=== PATIENT | male | born 1960 | race Caucasian/White ===

== ENCOUNTER → 2019-12-12 15:36 | Outpatient (CLI) | payer BC, SELFPAY ==
--- NOTE | ~2019-12-12 | XR_ITS ---
EXAMINATION: XR knee RT 3V DATE: 12/12/2019 17:06 INDICATION: Right knee sprain. TECHNIQUE: 4 views of right knee were obtained. COMPARISON: None. FINDINGS: Bone alignment is normal. No fracture. There is an osteochondroma at medial aspect of proxi mal tibial metaphysis. There is mild tricompartmental osteoarthritis. There is a small knee joint eff usion. IMPRESSION: 1. Mild right knee osteoarthritis. 2. Small right knee joint effusion. Reviewed, dictated and finalized at location A.
== END ==
PROVIDERS: PCP Family Medicine; Visit Provider Family Medicine
DX: S83.91XA Sprain of unspecified site of right knee, initial encounter (principal); X58.XXXA Exposure to other specified factors, initial encounter; M17.11 Unilateral primary osteoarthritis, right knee; M25.461 Effusion, right knee
CPT/HCPCS: 73562

== ENCOUNTER 2019-12-20 13:37 | Outpatient (CLI) | payer BC, SELFPAY ==
--- NOTE | ~2019-12-20 | MR_ITS ---
EXAMINATION: MR knee RT wo con DATE: 12/20/2019 14:45 INDICATION: Right knee pain TECHNIQUE: Magnetic resonance imaging (MRI) of the right knee was performed without intravenous contr ast. Sequences included coronal PD-weighted FSE, coronal PD-weighted FS FSE, sagittal T2-weighted FS E, sagittal PD-weighted FS FSE and axial PD weighted fat saturated FSE. COMPARISON: Right knee radiographs dated 12/12/2019 FINDINGS: Medial compartment: Complex tear which extends from the free edge to the periphery of the lateral aspect of the posterior horn of the medial meniscus and with additional longitudinal horizontal tear plane which extends acr oss the more medial posterior horn and posterior meniscal body, contacting the superior articular evans face near the free edge. Articular cartilage is normal. Lateral compartment: Lateral meniscus is normal. Articular cartilage is normal. Patellofemoral compartment: Chondral ulceration and fissuring with underlying subcutaneous articular edema at the cephalad aspect of the lateral patellar facet. Deep chondral ulceration and fissuring with minimal underlying cortic al irregularity at the caudal aspect of the medial trochlea. Ligaments and tendons: Anterior and posterior cruciate ligaments are normal. Fibular collateral ligament is normal. There is mild thickening and increased signal of the proximal medial collateral ligament without surrounding edema consistent with mild scarring related to chronic sprain. Mild distal quadriceps tendinopathy wi thout discrete tear. The patellar tendon is normal. The visualized medial and lateral hamstring tendo ns as well as the iliotibial band are normal. Fluid: Small knee joint effusion at the suprapatellar pouch. No loose osteochondral bodies identified. Osseous/other: Normal marrow signal aside from the degenerative subarticular edema at the patella. No fracture or pa thologic marrow replacing process. Again seen is an exostosis with cortical and medullary continuity extending distally from the medial metaphyseal region of the proximal tibia consistent with benign os teochondroma. IMPRESSION: 1. Complex medial meniscal tear. 2. Mild patellofemoral osteoarthritis with regions of high-grade chondromalacia at the lateral patell ar facet and medial trochlea. Reviewed, dictated and finalized at location A. IMPRESSION: 1. Complex medial meniscal tear. 2. Mild patellofemoral osteoarthritis with regions of high-grade chondromalacia at the lateral patellar facet and medial trochlea.
== END 2019-12-20 13:38 | disposition home or self-care (01) ==
PROVIDERS: PCP Family Medicine; Visit Provider Family Medicine
DX: S83.231A Complex tear of medial meniscus, current injury, right knee, initial encounter (principal); X58.XXXA Exposure to other specified factors, initial encounter; M17.11 Unilateral primary osteoarthritis, right knee
CPT/HCPCS: 73721

== ENCOUNTER → 2021-02-01 10:30 | Outpatient (CLI) | payer OTHER, BC, SELFPAY ==
--- NOTE | ~2021-02-01 | US_ITS ---
EXAMINATION: US renal BI EXAM DATE: 02/01/2021 10:45 INDICATION: Chronic kidney disease, stage 3a, Other proteinuria . TECHNIQUE: Multiple grayscale and Doppler images of the kidneys were obtained (by a technologist who performed the scan) and subsequently reviewed. There is no prior study for comparison. FINDINGS: Right kidney: There is normal contour and echogenicity. It measures 10.8 x 6.3 x 6.1 centimeters. T here are no focal renal lesions identified. There is no hydronephrosis. Left kidney: There is normal contour and echogenicity. It measures 9.9 x 6.5 x 5.8 centimeters. The re are no focal renal lesions identified. There is no hydronephrosis. Bladder unremarkable. IMPRESSION: 1. Sonographically unremarkable kidneys. Reviewed, dictated and finalized at location B. S CONTRACTOR
== END ==
PROVIDERS: Visit Provider Internal Medicine Nephrology
DX: N18.31 Chronic kidney disease, stage 3a (principal); R80.8 Other proteinuria
CPT/HCPCS: 76775

== ENCOUNTER 2022-01-10 01:51 | Day surgery (SDC) | payer OTHER, BC, SELFPAY ==
[2022-01-10 11:53] VITALS: BP 149/82; PULSE 70; RESP 18; TEMP 36.1; O2SAT 99; BMI 41.8
[2022-01-10] MEDS: LACTATED RINGERS 1,000 ML 150 ML IV CONT (12:05)
[2022-01-10 12:09] LABS: Glucose Point of Care 118 mg/dl (65-105)
--- NOTE | 2022-01-10 12:32 | PM.HPGS ---
History of Present Illness History of Present Illness Consent: Risks, benefits, and alternatives have been discussed and questions answered. Patient agrees to proceed with procedure. Chief complaint: neoplasm screening Narrative: Shane Cohen is a 61 year old male Presents for screening colonoscopy. Patient's current weight appetite bowel movements are unchanged. He denies abdominal pain. He has had no bleeding. Previous colonoscopy 10 years ago was unremarkable. Patient presents today for screening colonoscopy. Review of Systems Review of Systems: Review of systems noncontributory. [facility] Past Medical History Medical History COPD (chronic obstructive pulmonary disease) Diabetes Hx of Guillain-[place] syndrome Hypertension Sleep apnea Stroke Surgical History Surgical History H/O knee surgery left Family History Family History Mother Heart valve replaced COPD (chronic obstructive pulmonary disease) Father Diabetes mellitus Heart disease Obesity Grandparent Diabetes mellitus Cancer Obesity Sibling Diabetes mellitus Social History Social History Social History: Caffeine-tea occasionally Smoking status: Never smoker Alcohol intake: current Alcohol use details: Rarely Substance use type: does not use Living arrangements: with family Spiritual care concerns: No Meds Home Medications and Allergies Home Medications Medication Instructions Recorded Confirmed Type ascorbic acid (vitamin C) 500 mg 1 g PO DAILY 05/28/20 12/20/21 History tablet aspirin 81 mg tablet,delayed 81 mg PO DAILY 05/28/20 12/20/21 History release (Adult Low Dose Aspirin) cholecalciferol (vitamin D3) 125 mcg PO DAILY 05/28/20 12/20/21 History blood sugar diagnostic (Tech CocktailTouch #100 ea 04/04/21 12/06/21 Rx Verio test strips) lancets 33 gauge (Tech CocktailTouch [place]ie #100 ea 04/04/21 12/06/21 Rx Plus Lancet) amlodipine 10 mg tablet 10 mg PO DAILY #90 tabs 09/12/21 12/20/21 Rx losartan 100 mg tablet 100 mg PO DAILY #90 tabs 09/12/21 12/20/21 Rx tamsulosin 0.4 mg capsule (Flomax) 0.4 mg PO QHS #90 caps 12/06/21 12/20/21 Rx empagliflozin 25 mg tablet 25 mg PO DAILY 12/20/21 12/20/21 History (Jardiance) glipizide 10 mg tablet 10 mg PO BID 12/20/21 12/20/21 History metformin 500 mg tablet 1,000 mg PO BID 12/20/21 12/20/21 History metoprolol tartrate 25 mg tablet 25 mg PO BID 12/20/21 12/20/21 History rosuvastatin 40 mg tablet 40 mg PO 2XW 12/20/21 12/20/21 History sodium,potassium,mag sulfates 17.5 See Rx Instructions PO .COMPLEX 12/20/21 01/10/22 Rx gram-3.13 gram-1.6 gram oral soln #354 mL (Suprep Bowel Prep Kit) Allergies Allergy/AdvReac Type Severity Reaction Status Date / Time Influenza Virus Vaccines Allergy 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 Vital signs stable. HEENT exam is unremarkable. Patient is anicteric. Lungs are clear to auscultation and percussion. Heart is without murmur or extra sounds. Abdomen is obese. Bowel sounds present soft nontender with no organomegaly. Digital external rectal exam is normal. Assessment and Plan Assessment and plan (1) Screening for colon cancer: Code(s): Z12.11 - Encounter for screening for malignant neoplasm of colon Status: Acute Assessment and Plan:
--- NOTE | 2022-01-10 12:52 | WPDANESEPPF ---
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 Tetanus Vaccines and Toxoid Allergy Unknown Muscle Verified 01/10/22 11:52 Spasms Shingles vaccine AdvReac 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 Home Medications Medication Instructions Recorded Confirmed Type ascorbic acid (vitamin C) 500 mg 1 g PO DAILY 05/28/20 12/20/21 History tablet aspirin 81 mg tablet,delayed 81 mg PO DAILY 05/28/20 12/20/21 History release (Adult Low Dose Aspirin) cholecalciferol (vitamin D3) 125 mcg PO DAILY 05/28/20 12/20/21 History blood sugar diagnostic (OneTouch #100 ea 04/04/21 12/06/21 Rx Verio test strips) lancets 33 gauge (OneTouch Delica #100 ea 04/04/21 12/06/21 Rx Plus Lancet) amlodipine 10 mg tablet 10 mg PO DAILY #90 tabs 09/12/21 12/20/21 Rx losartan 100 mg tablet 100 mg PO DAILY #90 tabs 09/12/21 12/20/21 Rx tamsulosin 0.4 mg capsule (Flomax) 0.4 mg PO QHS #90 caps 12/06/21 12/20/21 Rx empagliflozin 25 mg tablet 25 mg PO DAILY 12/20/21 12/20/21 History (Jardiance) glipizide 10 mg tablet 10 mg PO BID 12/20/21 12/20/21 History metformin 500 mg tablet 1,000 mg PO BID 12/20/21 12/20/21 History metoprolol tartrate 25 mg tablet 25 mg PO BID 12/20/21 12/20/21 History rosuvastatin 40 mg tablet 40 mg PO 2XW 12/20/21 12/20/21 History sodium,potassium,mag sulfates 17.5 See Rx Instructions PO .COMPLEX 12/20/21 01/10/22 Rx gram-3.13 gram-1.6 gram oral soln #354 mL (Suprep Bowel Prep Kit) Laboratory Tests 01/10/22 12:04 POC Capillary Glucose 118 mg/dl H mg/dl (65-105) Patient hx anesthesia problems: none Family hx anesthesia problems: none Results Review: All pre-operative results and documents have been reviewed as part of the pre-operative evaluation. [facility] Past Medical History Medical History COPD (chronic obstructive pulmonary disease) Diabetes Hx of Guillain-[place] syndrome Hypertension Sleep apnea Stroke Surgical History Surgical History H/O knee surgery left Family History Family History Mother Heart valve replaced COPD (chronic obstructive pulmonary disease) Father Diabetes mellitus Heart disease Obesity Grandparent Diabetes mellitus Cancer Obesity Sibling Diabetes mellitus Social History Social History Social History: Caffeine-tea occasionally Smoking status: Never smoker Alcohol intake: current Alcohol use details: Rarely Substance use type: does not use Living arrangements: with family Spiritual care concerns: No Anes - Eval Final PreProcedure Day of Procedure 01/10/22 12:52 Patient weight: morbidly obese Heart: regular rate and rhythm Lungs: clear to auscultation Airway: Mallampati scale class II Neurological: alert and oriented Last oral intake: >/= 8 hours ASA classification: III Emergent: no Anesthetic plan: proceed Anesthesia type and monitoring: general GIVS and standard monitoring Results Review: All pre-operative results and documents have been reviewed as part of the pre-operative evaluation. Informed Consent: The patient's anesthetic plan and its
[2022-01-10 13:03] VITALS: BP 141/78; PULSE 62; RESP 20; O2SAT 98
[2022-01-10 13:13] VITALS: BP 149/82; PULSE 59; RESP 14; O2SAT 99
[2022-01-10 13:23] VITALS: BP 150/85; PULSE 60; RESP 18; O2SAT 99
== END 2022-01-10 13:36 | disposition home or self-care (01) ==
PROVIDERS: PCP Nurse Practitioner; Visit Provider Internal Medicine Gastroenterology
PROC: 0DJD8ZZ Inspection of Lower Intestinal Tract, Via Natural or Artificial Opening Endoscopic (ICD-10-PCS; CPT 45378; principal; 2022-01-10 13:00)
DX: Z12.11 Encounter for screening for malignant neoplasm of colon (principal); K64.8 Other hemorrhoids; J44.9 Chronic obstructive pulmonary disease, unspecified; E11.9 Type 2 diabetes mellitus without complications; I10 Essential (primary) hypertension; G47.30 Sleep apnea, unspecified; Z86.73 Personal history of transient ischemic attack (TIA), and cerebral infarction without residual deficits; E66.01 Morbid (severe) obesity due to excess calories; Z68.41 Body mass index [BMI] 40.0-44.9, adult; Z79.82 Long term (current) use of aspirin; Z79.84 Long term (current) use of oral hypoglycemic drugs
CPT/HCPCS: 45378; 82948; J2704; J7120

== ENCOUNTER 2023-03-19 10:13 | Emergency (ER) | payer OTHER, SELFPAY ==
[2023-03-19 10:24] VITALS: BP 176/88; PULSE 78; RESP 16; TEMP 36.6; O2SAT 99
--- NOTE | 2023-03-19 10:37 | ED.URI ---
HPI - URI/Sore Throat General Chief Complaint: Upper Respiratory Infection Stated Complaint: COUGH/CONGESTION Time Seen by Provider: 03/19/23 10:35 Source: patient Mode of arrival: ambulatory Limitations: no limitations History of Present Illness HPI Narrative: Shane is a 62-year-old male patient presenting to the clinic today with complaints of cough, nasal congestion, and congestion x3 days. He denies any fever chills. Cough is nonproductive. Is somewhat short of breath when he lays flat. Denies any extremity swelling. No history congestive heart failure. History of COPD/bronchitis MD elicited complaint: nasal congestion Related Data Home Medications Medication Instructions Recorded Confirmed ascorbic acid (vitamin C) 500 mg 1 g PO DAILY 05/28/20 03/19/23 tablet aspirin 81 mg tablet,delayed 81 mg PO DAILY 05/28/20 03/19/23 release (Adult Low Dose Aspirin) cholecalciferol (vitamin D3) 125 mcg PO DAILY 05/28/20 03/19/23 gabapentin 300 mg capsule 900 mg PO DAILY 04/11/22 03/19/23 mecobalamin (vitamin B12) 5,000 5,000 mcg PO DAILY 03/04/23 03/19/23 mcg chewable tablet omeprazole 20 mg tablet,delayed 20 mg PO DAILY 03/04/23 03/19/23 release Allergies Allergy/AdvReac Type Severity Reaction Status Date / Time Influenza Virus Vaccines Allergy Severe GUILLIAN Verified 03/19/23 10:21 BARRE SYNDROME Tetanus Vaccines and Toxoid Allergy Unknown Muscle Verified 03/19/23 10:21 Spasms Shingles vaccine AdvReac 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 Patient denies any fever, chills, rash, headache, visual changes, dizziness, chest pain, palpitations, nausea, vomiting, diarrhea, constipation, abdominal pain, or any urinary issues. [facility] Past Medical History Medical History (Updated 03/19/23 @ 10:39 by Loc Mohan APRN) COPD (chronic obstructive pulmonary disease) COVID-19 Diabetes Hx of Guillain-[place] syndrome Hypertension Influenza A Screening for colon cancer Screening for metabolic disorder Screening for prostate cancer Sleep apnea Stroke Urinary hesitancy Surgical History Surgical History H/O knee surgery left Family History Family History Mother Heart valve replaced COPD (chronic obstructive pulmonary disease) Father Diabetes mellitus Heart disease Obesity Grandparent Diabetes mellitus Cancer Obesity Sibling Diabetes mellitus Social History Social History Social History: Caffeine-tea occasionally Smoking status: Never smoker Alcohol intake: current Alcohol use details: Rarely Substance use type: does not use Do You Feel Safe in your Home?: Yes Lack of Transportation: No Lack of Food: Never True Current Housing: I Have Housing Concerned About Future Housing: No Difficulty Paying Gas/Electric Bills: No Difficulty Paying for Meds: No Currently Unemployed: No Education: Trade/Vocational Certificate Difficulty w/ Childcare or Family Care: No Living arrangements: with family Gender identity (if verbalized by the patient): Male Spiritual care concerns: No Comments At the time of my signature, I reviewed and agree with the nursing past medical, surgical, social, and family history. There is no relevant family history pertinent to the patient complaint. Exam Narrative: General: Well-developed, well nourished, in no apparent distress Head: Normocephalic, atraumatic Eyes: Pupils equally round and reactive to light bilaterally, EOM intact, sclera and conjunctive clear, no discharge, lids normal Ears: TMs intact and clear, ear canals clear, no drainage, grossly hearing normal. Nose: Nares patent, no discharge, no inflammation, no sinus tenderness. [place]
== END 2023-03-19 10:48 | disposition home or self-care (01) ==
PROVIDERS: Emergency Provider Nurse Practitioner Family; PCP Nurse Practitioner
DX: J40 Bronchitis, not specified as acute or chronic (principal); Z20.822 Contact with and (suspected) exposure to COVID-19; J44.9 Chronic obstructive pulmonary disease, unspecified; E11.9 Type 2 diabetes mellitus without complications; I10 Essential (primary) hypertension; G61.0 Guillain-Barre syndrome; Z86.73 Personal history of transient ischemic attack (TIA), and cerebral infarction without residual deficits
CPT/HCPCS: 87426; 87804; 99213; C9803; G0463

== ENCOUNTER → 2023-04-08 14:10 | Outpatient (CLI) | payer OTHER, SELFPAY ==
--- NOTE | ~2023-04-08 | XR_ITS ---
EXAMINATION: XR chest 2V 04/08/2023 14:19 INDICATION: Acute bronchitis PROCEDURE: 2 view chest COMPARISON: Comparison to multiple prior studies sequentially, with oldest reviewed study dated 11/05. FINDINGS: The lungs are clear. The cardiomediastinal silhouette is within normal limits. There are no pleural effusions. There is no pneumothorax suspected. IMPRESSION: 1: NO ACUTE CARDIOPULMONARY DISEASE. Reviewed, dictated and finalized at location B. A INSTRUCTOR
== END ==
PROVIDERS: PCP Nurse Practitioner; Visit Provider Clinical Nurse Specialist
DX: J20.9 Acute bronchitis, unspecified (principal)
CPT/HCPCS: 71046

== ENCOUNTER 2023-08-06 13:00 | Outpatient (RCR) | payer OTHER, SELFPAY ==
[2023-06-23 08:05] VITALS: BMI 44.6
== END 2023-09-16 23:59 | disposition home or self-care (01) ==
LOC: ANHDMC 13:00
PROVIDERS: PCP Family Medicine; Visit Provider Nurse Practitioner
DX: E11.22 Type 2 diabetes mellitus with diabetic chronic kidney disease (principal); E11.65 Type 2 diabetes mellitus with hyperglycemia; E66.01 Morbid (severe) obesity due to excess calories; Z71.89 Other specified counseling; Z71.3 Dietary counseling and surveillance
CPT/HCPCS: 95250; 97802; G0108

== ENCOUNTER 2023-12-02 09:15 | Outpatient (RCR) | payer OTHER, SELFPAY | END 2023-12-14 10:29 | disposition home or self-care (01) | LOC: ANHDMC 09:15 | PROVIDERS: PCP Internal Medicine; Visit Provider Nurse Practitioner | DX: E11.22 Type 2 diabetes mellitus with diabetic chronic kidney disease (principal); N18.9 Chronic kidney disease, unspecified; E11.65 Type 2 diabetes mellitus with hyperglycemia; E66.01 Morbid (severe) obesity due to excess calories; Z71.89 Other specified counseling | CPT/HCPCS: G0108 ==

== ENCOUNTER 2024-01-20 08:34 | Outpatient (CLI) | payer OTHER, SELFPAY ==
[2024-01-20 09:17] LABS: Alanine Aminotransferase 22 U/L (6-50); Aspartate Amino Transferase 40 U/L (17-59)
== END 2024-01-20 08:35 | disposition home or self-care (01) ==
LOC: ANHLAB 08:35
PROVIDERS: PCP Nurse Practitioner Family; Visit Provider Podiatrist Foot & Ankle Surgery
DX: B35.1 Tinea unguium (principal)
CPT/HCPCS: 36415; 84450; 84460

== ENCOUNTER 2024-03-31 09:15 | Outpatient (RCR) | payer OTHER, SELFPAY | END 2024-04-11 09:34 | disposition home or self-care (01) | LOC: ANHDMC 09:15 | PROVIDERS: PCP Nurse Practitioner Family; Visit Provider Nurse Practitioner | DX: E11.65 Type 2 diabetes mellitus with hyperglycemia (principal); E11.22 Type 2 diabetes mellitus with diabetic chronic kidney disease; N18.9 Chronic kidney disease, unspecified; E66.01 Morbid (severe) obesity due to excess calories; R80.9 Proteinuria, unspecified; Z71.89 Other specified counseling | CPT/HCPCS: G0108 ==

== ENCOUNTER 2024-05-18 10:10 | Outpatient (RCR) | payer OTHER, SELFPAY | END 2024-05-20 10:41 | disposition home or self-care (01) | LOC: ANHDMC 10:10 | PROVIDERS: PCP Nurse Practitioner Family; Visit Provider Nurse Practitioner | DX: E11.65 Type 2 diabetes mellitus with hyperglycemia (principal); E11.29 Type 2 diabetes mellitus with other diabetic kidney complication; R80.9 Proteinuria, unspecified; Z71.89 Other specified counseling | CPT/HCPCS: G0108 ==

== ENCOUNTER 2024-08-30 09:15 | Outpatient (RCR) | payer OTHER, SELFPAY | END 2024-10-03 11:05 | disposition home or self-care (01) | LOC: ANHDMC 09:15 | PROVIDERS: PCP Nurse Practitioner Family; Visit Provider Nurse Practitioner | DX: E11.65 Type 2 diabetes mellitus with hyperglycemia (principal); E11.22 Type 2 diabetes mellitus with diabetic chronic kidney disease; E11.29 Type 2 diabetes mellitus with other diabetic kidney complication; R80.9 Proteinuria, unspecified; Z71.89 Other specified counseling | CPT/HCPCS: G0108 ==

== ENCOUNTER 2024-09-15 08:51 | Outpatient (CLI) | payer OTHER, SELFPAY ==
--- NOTE | ~2024-09-15 | XR_ITS ---
XR ankle LT min 3V Ordering provider: Gary Byrne Jr., DPM History: . OA lt ankle; LT ANKLE PAIN x2 MONTHS . Comparison: None. FINDINGS: BONES: No acute fracture or dislocation. Highly suggestive nonhealed fracture at the base of the fift h metatarsal bone. JOINT SPACES: The ankle mortise is normal. SOFT TISSUES: Soft tissue swelling over the medial and lateral malleoli. Calcaneal spur. Ossification of the insertion of the tendo Achilles. IMPRESSION: No acute osseous abnormality left ankle. Highly suggestive of old nonhealed fracture at the base of the fifth metatarsal bone. Proper imaging advised. Calcaneus spur. Reviewed, dictated and finalized at location A.
--- OUTSIDE RECORDS SUMMARY | 2024-09-15 08:58 | XMS_ITS | Encounter Summary ---
Author Organization [facility] Healthcare Address [address] [place] [address] Care Team Providers Care Terrazzo Grinder Name Role Phone Lily Wolf NP Primary Care Provider [phone] Sudarshan Funez MD Unavailable William Delarosa MD Unavailable [phone] Hebert Daily MD Unavailable Donavan Knott MD Unavailable [phone] Mikhail Caceres MD Unavailable [phone] Anita Covarrubias OD Unavailable Cyril Gallardo MD Unavailable [phone] Lily Wolf NP Primary Care Provider [phone] Encounter Details Date Type Department Care Team (Late st Contact Info) Description 07/26/2024 Results Follow-Up [facility] Medical [facility] Primary Care at [address] [id number] Lily Wolf NP [address] [place] [address] [address] [place] [address] Hepatitis B surface antibody (immune status) Blood, Hepatitis B core antibody, total Blood, Hepatitis B Surface Antigen Blood, Additional followed-up results: 9 Social History Tobacco Use Types Packs/Day Years Used Date Smoking Tobacco: Never Smokeless Tobacco: Never PHQ-2 Answer Date Recorded PHQ-2 Total Score (If total score is 3 or more points, staff should administer the PHQ-9) 0 07/25/2024 Sex and Gender Information Value Date Recorded Sex Assigned at Not on file Legal 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 Patient sees Dr. Gallardo documented in this encounter Plan of Treatment Not on file documented as of this encounter Visit Diagnoses Not on filedocumented in this encounter Care Teams Terrazzo Grinder Relationship Specialty Start Date End Date Lily Wolf NP PCP - General Family Medicine 08/25/23 08/24/24 Lily Wolf NP [address] [place] [address] PCP - General Family Medicine 08/25/24 Sudarshan Funez MD [address] [place] [address] Consulting Physician Cardiovascular Disease 08/25/23 [place] [address] [place] [address] Surgeon Orthopedic Surgery 08/25/23 Hebert Daily MD [address] [place] [address] Consulting Physician Urology 08/25/23 Donavan Knott MD [address] [facility] [address] [place] [address] Consulting Physician Internal Medicine 01/26/24 Mikhail Caceres MD [address] [facility] [address] [place] [address] Referring Physician Gastroenterology 01/26/24 Anita Covarrubias OD [address] [facility] [place] [address] Optometry 01/26/24 Cyril Gallardo MD [address] [facility] [address] [place] [address] Referring Physician Nephrology 07/27/24 documented as of this encounter
--- OUTSIDE RECORDS SUMMARY | 2024-09-15 08:58 | XMS_ITS | Referral Summary ---
Author Organization [facility] [address] Address [address] [place] [address] Care Team Providers Care Lobby Attendant Name Role Phone Sudarshan Funez MD Unavailable [phone] William Delarosa MD Unavailable [phone] Hebert Daily MD Unavailable [phone] Donavan Knott MD Unavailable [phone] Mikhail Caceres MD Unavailable [phone] Anita Covarrubias OD Unavailable [phone] Cyril Gallardo MD Unavailable [phone] Lily Wolf NP Primary Care Provider [phone] Encounters Date Type Department Care Team Description 07/27/2024 Telephone [facility] Primary Care at [address] [address] Lily Wolf NP PA for Betamethasone Dipropionate 0.05% ointment 07/26/2024 Results Follow-Up [facility] Medical [facility] Primary Care at [address] [address] Lily Wolf NP Hepatitis B surface antibody (immune status) Blood, Hepatitis B core antibody, total Blood, Hepatitis B Surface Antigen Blood, Additional followed-up results: 9 07/26/2024 Orders Only [facility] Primary Care at [address] [address] Lily Wolf NP 07/25/2024 8:38 AM CDT - 07/25/2024 11:59 PM CDT Hospital Encounter [address] [address] Need for hepatitis B screening test; Controlled type 2 diabetes mellitus with stage 3 chronic kidney disease, unspecified whether mcc insulin use (HCC); Screening PSA (prostate specific antigen); Thyroid disorder screen; Hyperlipidemia associated with type 2 diabetes mellitus (HCC); Hypertension associated with diabetes (HCC); Need for hepatitis C screening test; Encounter for hepatitis C screening test for low risk patient Discharge Disposition: Discharge to home or self care 07/25/2024 8:45 AM CDT Lab [facility] Outpatient Lab at [address] [address] Hyperlipidemia associated with type 2 diabetes mellitus (HCC) (Primary Dx); Hypertension associated with diabetes (HCC) 07/25/2024 8:00 AM CDT Office Visit [facility] Primary Care at [address] [address] Lily Wolf NP Hypertension associated with diabetes (HCC) (Primary Dx); Hyperlipidemia associated with type 2 diabetes mellitus (HCC); Stage 3b chronic kidney disease (HCC); Controlled type 2 diabetes mellitus with stage 3 chronic kidney disease, unspecified whether mcc insulin use (HCC); Insect bite of right lower leg, initial encounter; Thyroid disorder screen; Screening PSA (prostate specific antigen); Need for hepatitis B screening test; Need for hepatitis C screening test; Encounter for hepatitis C screening test for low risk patient; Class 3 severe obesity due to excess calories with serious comorbidity and body mass index (BMI) of 45.0 to 49.9 in adult; Neuropathy; Benign prostatic hyperplasia with urinary frequency from Last 3 Months Allergies Active Allergy Reactions Criticality Noted Date Comments Influenza Virus Vaccines Unknown 02/15/2019 Pneumococcal Vaccine Unknown 02/15/2019 Tetanus Vaccines And Toxoid Unknown 02/16/20 19 Medications blood-glucose meter (OneTouch Verio Meter) [facility] OneTouch Verio Meter Active blood glucose diagnostic (OneTouch Verio test strips) strip OneTouch Verio test strips Active aspirin 81 mg enteric coated tablet Take 1 tablet (81 mg total) by mouth daily Active ascorbic acid (VITAMIN C) 500 mg tablet,chewable Take 1 tablet/chew tab (500 mg total) by mouth cloud automation tester before breakfast Active cholecalciferol , vitamin D3, 5,000 unit/mL drops Take 1 tablet/capsule by mouth cloud automation tester before breakfast Active albuterol HFA (PROVENTIL HFA,VENTOLIN HFA,PROAIR HFA) 90 mcg/actuation inhaler INHALE 2 PUFFS BY MOUTH EVERY 4 TO 6 HOURS NEEDED FOR SHORTNESS OF BREATH FOR WHEEZING 03/19/19 24 Active gabapentin (NEURONTIN) 300 mg capsule Take 1 capsule (300 mg total) by mouth 4 (four) times a day 11/10/19 24 Active omeprazole (PriLOSEC) 20 mg capsule Take 1 capsule (20 mg total) by mouth daily Active ketoconazole (NIZORAL) 2 % cream Apply topically 2 (two) times a day 60 g 01/26/20 24 Active lifitegrast (Xiidra) 5 % dropperette Administer into affected eye(s) 2 (two) times a day Active Mounjaro 10 mg/0.5 mL pen injector injectionIndica tions:type 2 diabetes mellitus Inject 0.5 mL (10 mg total) under the skin every 7 days 6 mL 1 05/20/19 25 025 Active NovoLOG 100 unit/mL (3 mL) pen for injectionIndica tions:Type 2 diabetes mellitus with stage 4 chronic kidney disease, with long-term current use of insulin (HCC) Inject 10-30 Units under the skin daily with dinner 27 mL 1 05/20/19 25 025 Active TRESIBA 100 unit/mL (3 mL) pen for injectionIndica tions:Type 2 diabetes mellitus with stage 4 chronic kidney disease, with long-term current use of insulin (HCC) Inject 0.78 mL (78 Units total) under the skin daily 70.2 mL 3 05/20/19 25 026 Active Additional Information Patient taking differently: 80 Unitssubcutaneous Daily, Reported on 07/25/2024 Farxiga 5 mg tabletIndicatio ns:Chronic Kidney Disease,type 2 diabetes mellitus Take 1 tablet (5 mg total) by mouth daily 90 tablet 3 05/20/19 25 026 Active tamsulosin (FLOMAX) 0.4 mg extended release capsule Take 1 capsule (0.4 mg total) by mouth nightly 100 capsule 3 07/26/19 25 Active amLODIPine (NORVASC) 10 mg tablet Take 1 tablet (10 mg total) by mouth daily 100 tablet 3 07/26/19 25 Active metoprolol tartrate (LOPRESSOR) 25 mg immediate release tablet Take 1 tablet (25 mg total) by mouth 2 (two) times a day 180 tablet 1 07/26/19 25 Active rosuvastatin (CRESTOR) 40 mg tabletIndicatio ns:Hyperlipidem ia associated with type 2 diabetes mellitus (HCC) Take twice weekly 90 tablet 1 07/26/19 25 Active terbinafine (LamiSIL) 250 mg tabletIndicatio ns:Onychomycosi s Take 1 tablet (250 mg total) by mouth daily 90 tablet 07/26/19 25 Active betamethasone dipropionate (DIPROSONE) 0.05 % ointment Apply topically 2 (two) times a day Until healed 30 g 07/26/19 25 Active desoximetasone (TOPICORT) 0.25 % ointment Apply topically 2 (two) times a day Formulary alternative to betamethasone 30 g 07/27/19 25 026 Active Active Problems Problem Noted Date Diagnosed Date Annual physical exam 07/27/2024 Assessment & Plan (07/27/2024 1:40 PM CDT): -Recommended: Healthy diet. Avoiding junk food/fast food. -30 minutes of exercise most days of the week. Increase to 45 minutes for weight loss. Health Maintenance reviewed - Labs ordered. -Influenza vaccine every year Recommend: - Topic Date Due Pneumococcal vaccine <65 (2 of 2 - PCV) 11/24/2009 -F/u in 1 year for Annual PE or sooner if needed Benign prostatic hyperplasia with urinary freque ncy 07/27/2024 Assessment & Plan (07/27/2024 1:42 PM CDT): On tamsulosin .4mg nightly. Having intermittent increased symptoms. Doesn't want to increase dose at this time. Neuropathy 07/25/2024 Assessment & Plan (07/25/2024 8:37 AM CDT): Of bilateral feet. He does see Podiatry. Continue gabapentin Insect bite of right lower leg 07/25/2024 Assessment & Plan (07/25/2024 8:41 AM CDT): Appears to be healing. No signs of infection at this time. Betamethasone ointment to area overnight for itching. Call if any changes Slow transit constipation 01/26/2024 Assessment & Plan (01/26/2024 9:59 AM AQUA AMMONIA OPERATOR): -constipation guidelines -add spencer montelongo Hyperlipidemia associated with type 2 diabetes himanshu dukes 01/26/2024 Assessment & Plan (07/25/2024 8:36 AM CDT): Lipid abnormalities are stable, reviewed previous lipid levels in [facility]. Continue statin therapy. Crestor (rosuvastatin) Order for lipid panel was given today to be obtained. Pt voiced understanding of lab drawn and continuation of current medication regimen. Assessment & Plan (01/26/2024 10:02 AM AQUA AMMONIA OPERATOR): Lipid abnormalities are stable. Pharmacotherapy as ordered. Continue atorvastatin twice weekly Lab Results Component Value Date LDLCALC 57 01/18/2024 Lipids will be reassessed in 6 months. Cutaneous candidiasis 01/26/2024 Assessment & Plan (01/26/2024 10:09 AM AQUA AMMONIA OPERATOR): -ketoconazole -betamethasone sparingly -continue scent-free products Chronic right-sided thoracic back pain Assessment & Plan (11/30/2023 8:33 AM CDT): May continue ibuprofen prn. Flexeril at bedtime prn. X-ray thoracic spine. Consider pain management. Refer to physical therapy. Class 3 severe obesity due t o excess calories with serious comorbidity and body mass index (BMI) of 45.0 to 49.9 in adult 08/25/2023 Assessment & Plan (07/25/2024 8:35 AM CDT): BMI Follow-up includes: exercise counseling. Assessment & Plan (01/26/2024 10:28 AM AQUA AMMONIA OPERATOR): BMI Follow-up includes: exercise counseling. Assessment & Plan (11/30/2023 8:32 AM CDT): BMI Follow-up includes: exercise counseling. Stage 3b chronic kidney disease 08/25/2023 Assessment & Plan (07/25/2024 8:36 AM CDT): Managed by Nephrology. Rechecking labs today. He has been taken off of losartan Last GFR was 42 Assessment & Plan (01/26/2024 10:06 AM AQUA AMMONIA OPERATOR): Lab Results Component Value Date GFRNAA 42 (L) 01/18/2024 Lab Results Component Value Date CREATININE 1.80 (H) 01/18/2024 Lab Results Component Value Date BUNSER 24 01/18/2024 Continue to follow a Renal diet that is low in sodium, potassium, and phosphorus. Avoid/limit foods such as fast food items, fried/breaded foods, canned goods, deli meats, gravies/sauces, bananas, tomatoes, oranges, milk, dark myriam and chocolate. Moro juice, citrus juices, and tomato juice are also high in potassium. Do not use salt substitutes, as they may contain potassium. Additional resources available online from the National Kidney Foundation at www.kidney.org/nutrition Labs are stable. Continue tight blood pressure control. Encouraged adequate fluid intake. Avoid nsaids. Will continue to monitor. Assessment & Plan (08/25/2023 1:36 PM CDT): Patient has a clearance coordinator. Last GFR that we have available was 57 in 2021. Will try to get updated labs. Tremor, unspecified 02/11/2021 Assessment & Plan (03/02/2021 1:12 PM AQUA AMMONIA OPERATOR): NEUROPSYCHOLOGICAL EVALUATION: INTERPRETATION (for Assessment and Plan, see further below) Normal cognitive performance on MMSE; Normal cognitive performance on MoCA. No evidence of depression on GDS; No evidence of depression on HADS. No evidence of anxiety on HADS. Mild evidence of daytime drowsiness on Luling scale. No evidence of REM Behavior Disorder (RBD) on Stiasny-Kolster scale. These scores establish a baseline for potential future reference and do not require a change in current plan. ASSESSMENT - 60 y.o. man with hand tremor that was incidentally noticed by his PMD earlier this year. I estimate the onset at some time in the past 1-2 years, 2020, age 59. It has been a tremor on hand posture and action, noticed only in the right hand (but present bilaterally as revealed the the exam below), without tremor elsewhere, without other motor symptoms, and without a known family history. The effect of alcohol is unknown. - The examination revealed very mild posture-action tremor in both hands, always less than 1-cm in ampltiude, and visible only on slow finger-nose and in a precision posture task. The tremor was not even noticeable in the handwriting or in free spiral drawing. I did not test constrained spiral drawing. There was no voice or head tremor. The motor UPDRS score was 8, consisting exclusively of mild to moderate slowing of Ivonne in both hands. There was minimal impairment of tandem gait. - Of note, Mr. 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 - Although there was no evidence of weakness on confrontation testing, the mild slowing of Ivonne of the hands could represent mild residual weakness from GBS 12 years ago. It may of course also represent bradykinesia due to parkinsonism, but there was no other parkinsonian finding. - The most likely diagnosis is essential tremor, now of very mild severity. Another possibility, less likely, is exaggerated physiologic tremor. - I explained my impression to Mr. Cohen. The tremor at this stage is so mild that it does not interfere with any activities and does not require treatment. The sense of unsteadiness is intermittent, mild, and subjective, and is matched by only mild impairment of tandem gait.Thus there is no need for PT. - Falls: no falls PLAN (phrased as addressed to the patient): - As we discussed, you have mild tremor in both hands when you use them. - The most likely diagnosis is essential tremor. This condition always worsens over time, but the speed of worsening is unpredictable and can be very slow, over the course of years. - At this time your tremor is very mild and does not require treatment. - I recommend follow-up examination in a year to see whether the tremor has worsened. This encounter's total [id number] time was greater than 60 minutes. I spent more than 50% of this time in counseling and/or coordination of care as documented in the note. The patient visit started at 1442 and ended at 1345. Greater than 50% of the visit was spent on counseling and coordinating care. Patient was counseled on differences between essential tremor and Parkinson's disease. NOTE: The present note includes, below, the line Ambulatory referral to Neurology. This statement is included as a mandatory component of the note template that I do not have the ability to remove. This statement has no clinical significance. I am NOT ordering a referral to Neurology. Family history of early CAD 02/15/2019 History of CVA (cerebrovascular accident) 2018 Overview (08/25/2023): 2008 Assessment & Plan (07/25/2024 8:38 AM CDT): History CVA in 2008. Sees Neurology yearly. Assessment & Plan (08/25/2023 1:33 PM CDT): History CVA in 2008. Sees Neurology yearly. History of Guillain-[place] syndrome 11/27/2008 Overview (08/25/2023): Does not get influenza vaccine Diabetes mellitus type II, controlled 11/24/2008 Assessment & Plan (07/25/2024 8:35 AM CDT): Has established with endocrinology here in [place]. Currently on insulin and mounjaro. Lab Results Component Value Date HGBA1C 6.2 05/19/2024 Lab Results Component Value Date SCRA1C 9.1 08/19/2023 Assessment & Plan (01/26/2024 10:05 AM AQUA AMMONIA OPERATOR): Stable. A1c 6.8%. managed by [facility]. Also seeing nurses educator. Assessment & Plan (08/25/2023 1:30 PM CDT): Uncontrolled. Hemoglobin A1c done at outside office. Results will be scanned into [employer] and A1c was 9.1%. He is currently on max dose of Ozempic at 2 mg weekly and max dose metformin a 1000 mg b.i.d.. He has an appointment with an stone lathe operator in a couple weeks. He is going to wait for that appointment to make any medication changes. Hypertension associated with diabetes 11/24/2008 Assessment & Plan (07/25/2024 8:34 AM CDT): Continue to monitor. Not quite at goal in office. He is currently on amlodipine 10 mg and metoprolol 25 mg b.i.d.. He will follow up with Nephrology who is managing Assessment & Plan (01/26/2024 10:06 AM AQUA AMMONIA OPERATOR): Borderline today. I do not want to make any medication changes due to his kidney function. Will have him follow up with nephrology. Assessment & Plan (08/25/2023 1:31 PM CDT): Stable/ Improved. Blood pressure is adequately controlled on Losartan and Metoprolol, amlodipine . We will not make any medication changes today. Will have him follow-up in 6 months for continued monitoring and management Resolved Problems Problem Noted Date Diagnosed Date Resolved Date Morbid (severe) obesity due to excess calories 08/25/2023 11/30/2023 Assessment & Plan (08/25/2023 1:32 PM CDT): BMI Follow-up includes: exercise counseling. Other chest pain 02/15/2019 08/25/2023 Bronchitis 07/05/2018 08/25/2023 Chronic obstructive lung disease 07/05/2018 07/25/2024 Assessment & Plan (08/25/2023 1:33 PM CDT): Stable. Not currently on any bronchodilators. He states he gets bronchitis about once a year. Type 2 diabetes mellitus 07/05/201801/2024 Hyperkalemia 11/24/2008 07/27/2024 Leg weakness 11/24/2008 08/25/2023 Morbid obesity 11/24/2008 08/25/2023 Tingling 11/23/2008 08/25/2023 Cerebral infarction 11/23/2008 08/25/19 24 Overview (08/25/2023): Tingling of skin 11/23/2008 01/26/2024 Immunizations Immunization Administration Dates Next Due Influenza, Unspecified 11/30/2023(Deferr ed: Patient Refused),03/16/2023(Deferred: Patient Refused) Pneumococcal Polysaccharide PPV23 11/24/2008 Sars-CoV-2, Unspecified 06/20/2020 Social History Tobacco Use Types Packs/Day Years Used Date Smoking Tobacco: Never Smokeless Tobacco: Never Tobacco Cessation:Counseling Given: Not Answered PHQ-2 Answer Date Recorded PHQ-2 Total Score (If total score is 3 or more points, staff should administer the PHQ-9) 0 07/25/2024 Sex and Gender Information Value Date Recorded Sex Assigned at Not on file Legal Sex Male 12:43 AM AQUA AMMONIA OPERATOR Gender Identity Male 12/22/2019 8:16 AM CDT Sexual Orientation Straight 12/22/2019 8: 16 AM CDT 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 Not on file Not on file Not on file Last Filed Vital Signs Vital Sign Reading Time Taken Comments Blood Pressure 140/70 07/25/2024 8:31 AM CDT Pulse 65 07/25/2024 8:00 AM CDT Temperature 36.4 C (97.5 F) 07/25/2024 8:00 AM CDT Respiratory Rate 18 07/25/2024 8:00 AM CDT Oxygen Saturation 96% 07/25/2024 8:00 AM CDT Inhaled Oxygen Concentration - - Weight 141.2 kg (311 lb 4.8 oz) 07/25/2024 8:00 AM CDT Height 172.7 cm (5' 8) 07/25/2024 8:00 AM CDT Body Mass Index 47.33 07/25/2024 8:00 AM CDT Plan of Treatment Not on file Procedures Procedure Name Priority Date/Time Associated Diagnosis Comments EGFR Routine 07/25/2024 8:38 AM CDT Hypertension associated with diabetes (HCC) DIFFERENTIAL AUTO Routine 07/25/2024 8:3 8 AM CDT Hypertension associated with diabetes (HCC) CBC WITH AUTO DIFFERENTIAL Routine 07/25/2024 8:38 AM CDT Hypertension associated with diabetes (HCC) COMPREHENSIVE METABOLIC PANEL Routine 07/25/2024 8:38 AM CDT Hypertension associated with diabetes (HCC) LIPID PANEL Routine 07/25/2024 8:38 AM CDT Hyperlipidemia associated with type 2 diabetes mellitus (HCC) THYROID FUNCTION CASCADE Routine 07/25/2024 8:38 AM CDT Thyroid disorder screen PSA SCREEN Routine 07/25/2024 8:38 AM CDT Screening PSA (prostate specific antigen) ALBUMIN CREATININE RATIO, URINE Routine 07/25/2024 8:38 AM CDT Controlled type 2 diabetes mellitus with stage 3 chronic kidney disease, unspecified whether mcc insulin use (HCC) HEPATITIS C ANTIBODY Routine 07/25/2024 8:38 AM CDT Need for hepatitis C screening test Encounter for hepatitis C screening test for low risk patient HEPATITIS B SURFACE ANTIGEN Routine 07/25/2024 8:38 AM CDT Need for hepatitis B screening test HEPATITIS B CORE ANTIBODY, TOTAL Routine 07/25/2024 8:38 AM CDT Need for hepatitis B screening test HEPATITIS B SURFACE ANTIBODY (IMMUNE STATUS) Routine 07/25/2024 8:38 AM CDT Need for hepatitis B screening test POCT HEMOGLOBIN A1C Routine 05/19/2024 8 :24 AM AQUA AMMONIA OPERATOR Type 2 diabetes mellitus with stage 4 chronic kidney disease, with long-term current use of insulin (HCC) HM DIABETES EYE EXAM Routine 05/10/2024 9:16 AM AQUA AMMONIA OPERATOR COLONOSCOPY Routine 01/10/2022 from Last 3 Months or Most Recently Relevant to Health Maintenance Results * (ABNORMAL) eGFR (07/25/2024 8:38 AM CDT) eGFR 32(L) >=60 mL/min/1. 73 m2 Comment: Interpretive Data Reference Interval Normal >/= 90 mL/min/1.73m2 Mildly decreased* 60 - 89 mL/min/1.73m2 Mildly to moderately decreased 45 - 59 mL/min/1.73m2 Moderately to severely decreased 30 - 44 mL/min/1.73m2 Severely decreased 15 - 29 mL/min/1.73m2 Kidney Failure < 15 mL/min/1.73m2 *Relative to young adult level Estimated glomerular filtration rate is determined by the 2020 CKD-EPI equation recommended by the National Kidney Foundation (A Unifying Approach to GFR Estimation: Recommendations of the NKF-ASK Task Force on Reassessing the Inclusion of Race in Diagnosing Kidney Disease, JASN 2020). The CKD-EPI equation should not be used for patients with unstable renal function and has not been validated in children and those over 70. Current interpretive data was last reviewed 2021. Blood 07/25/2024 8:38 AM CDT 07/25/2024 10:09 PM CDT Lily Wolf NP LAB BLOOD ORDERABLES Final Re sult JASON TAP[facility] [address] [facility] [place] [address] * Differential, auto (07/25/2024 8:38 AM CDT) Neutrophil abs 3.59 1.50 - 6.50 K/cumm Imm gran abs 0.02 0.00 - 0.10 K/cumm [facility] Lymphocyte abs 1.08 0.80 - 3.30 K/cumm [facility] Monocyte abs 0.56 0.20 - 0.80 K/cumm [facility] Eosinophil abs 0.17 0.00 - 0.50 K/cumm [facility] Basophil abs 0.04 0.00 - 0.10 K/cumm [facility] Neutrophil pct 65.7 % [facility] Comment: Interpretive Data Percent cell count reference ranges are not reported, since discordance with absolute values may lead to misinterpretation of CBC data. Current Interpretive Data was last revised on 2017. Imm gran pct 0.4 % [facility] Comment: Interpretive Data Percent cell count reference ranges are not reported, since discordance with absolute values may lead to misinterpretation of CBC data. Current Interpretive Data was last revised on 2017. Lymphocyte pct 19.8 % [facility] Comment: Interpretive Data Percent cell count reference ranges are not reported, since discordance with absolute values may lead to misinterpretation of CBC data. Current Interpretive Data was last revised on 2017. Monocyte pct 10.3 % [facility] Comment: Interpretive Data Percent cell count reference ranges are not reported, since discordance with absolute values may lead to misinterpretation of CBC data. Current Interpretive Data was last revised on 2017. Eosinophil pct 3.1 % [facility] Comment: Interpretive Data Percent cell count reference ranges are not reported, since discordance with absolute values may lead to misinterpretation of CBC data. Current Interpretive Data was last revised on 2017. Basophil pct 0.7 % [facility] Comment: Interpretive Data Percent cell count reference ranges are not reported, since discordance with absolute values may lead to misinterpretation of CBC data. Current Interpretive Data was last revised on 2017. Blood 07/25/2024 8:38 AM CDT 07/25/2024 10:04 PM CDT us Lily Wolf NP LAB BLOOD ORDERABLES Final Re sult [facility] [address] Department [place] [address] * Thyroid Function [place] (07/25/2024 8:38 AM CDT) TSH 2.73 0.30 - 4.20 mcIUnit/mL Blood 07/25/2024 8:38 AM CDT 07/25/2024 10:04 PM CDT Lily Wolf NP LAB BLOOD ORDERABLES Final Re sult Performing Organization Address [facility] de Phone Number JASON TAPIA [address] [facility] [place] [address] * PSA screen (07/25/2024 8:38 AM CDT) Pathologist [facility] PSA-Total 0.23 <=5.40 ng/mL Comment: Interpretive Data AGE SEX REFERENCE INTERVAL 0 minutes-150 years Female None 0 minutes-49 years Male None 50-59 years Male 0-3.90 60-69 years Male 0-5.40 70-79 years Male 0-6.20 80-150 years Male 0-6.20 The Marcel[employer] PSA Total assay procedure was used. Results from different manufacturers or methods may not be comparable. Serial testing should be performed using the same method. Current interpretive data last revised 21. Blood 07/25/2024 8:38 AM CDT 07/25/2024 10:04 PM CDT Lily Wolf NP LAB BLOOD ORDERABLES Final Re sult Performing Organization Address [facility] [facility] de Phone Number JASON TAPIA [address] [facility] [place] [address] * (ABNORMAL) CBC with auto differential (07/25/2024 8:38 AM CDT) Pathologist [facility] WBC 5.46 3.80 - 9.90 K/cumm Hgb 14.8 13.0 - 17.5 g/dL [facility] Hct 47.8 38.9 - 50.3 % [facility] Plt 173 150 - 400 K/cumm [facility] MPV 12.5(H) 9.1 - 12.3 fL [facility] RBC 5.36 4.30 - 5.80 M/cumm [facility] MCV 89.2 81.3 - 96.4 fL [facility] MCH 27.6 27.1 - 33.3 pg [facility] MCHC 31.0(L) 32.3 - 35.7 g/dL [facility] RDW CV 15.2(H) 11.1 - 14.9 % [facility] RDW SD 50.0(H) 35.7 - 48.1 fL [facility] NRBC abs 0.00 0.00 - 0.01 K/cumm [facility] Blood 07/25/2024 8:38 AM CDT 07/25/2024 10:04 PM CDT Lily Wolf NP LAB BLOOD ORDERABLES Final Re sult Performing Organization Address [facility] Co de Phone Number [facility] [address] [address] * Hepatitis C antibody Blood (07/25/2024 8:38 AM CDT) Hep C Ab Nonreactive Nonreactive Comment: Interpretive Data Nonreactive: Antibodies to HCV not detected. Does NOT exclude the possibility of recent exposure to HCV. Equivocal: Equivocal for HCV antibodies. Supplemental molecular testing will be automatically performed to determine infection status in accordance with current CDC screening recommendations. Reactive: Positive for HCV antibodies. This may represent current or past HCV infection. Supplemental molecular testing will be automatically performed to determine current infection status in accordance with current CDC screening recommendations. Interpretive data was last revised on 2019. Blood 07/25/2024 8:38 AM CDT 07/25/2024 10:04 PM CDT Lily Wolf NP LAB MICROBIOLOGY - GENERAL OR DERABLES Final Result Performing Organization Address [facility] Co de Phone Number [facility] [address] [place], [place] [id number] * (ABNORMAL) Albumin Creatinine Ratio, Urine (07/25/2024 8:38 AM CDT) Albumin Ur 3,573.3 mg/L Comment: Interpretive Data No reference range established. Current interpretive data was last revised 2018. Creatinine Ur 91.7 mg/dL [facility] Comment: Interpretive Data No reference range established. Current interpretive data was last revised 2018. Albumin Creatinine Ratio, Ur 3,897(H) 1 - 29 mg/g JASON TAPIA Urine 07/25/2024 8:38 AM CDT 07/25/2024 10:04 PM CDT Lily Wolf NP LAB URINE ORDERABLES Final Re sult Performing Organization Address [facility] Co de Phone Number JASON [address] [facility] [place] [address] * Hepatitis B core antibody, total Blood (07/25/2024 8:38 AM CDT) Pathologist [facility] Hep B core IgG/IgM Nonreactive Nonreactive Comment:Testing performed by : [facility], [address] [place]., [address] Blood 07/25/2024 8:38 AM CDT 07/26/2024 10:01 AM CDT Lily Wolf NP LAB MICROBIOLOGY - GENERAL OR DERABLES Final Result Performing Organization Address [facility] de Phone Number JASON [address] [facility] [place] [address] * Hepatitis B surface antibody (immune status) Blood (07/25/2024 8:38 AM CDT) Pathologist [facility] HBsAb (immune status) Nonreactive Comment: Interpretive Data Nonreactive: This result is consistent with a lack of immunity to Hepatitis B Virus when used in the setting of routine screening. Equivocal: The immune status of the individual should be further assessed, if appropriate, after consideration of clinical status, risk factors, and additional diagnostic information. Reactive: This result is consistent with immunity to Hepatitis B Virus when used in the setting of routine screening. Current interpretive data was last revised on 19. Blood 07/25/2024 8:38 AM CDT 07/25/2024 10:04 PM CDT Lily Wolf NP LAB MICROBIOLOGY - GENERAL OR DERABLES Final Result Performing Organization Address City/[facility] Co de Phone Number JASON TAPIA [address] [facility] [place] [address] * Hepatitis B Surface Antigen Blood (07/25/2024 8:38 AM CDT) HepBsAg Nonreactive Nonreactive Blood 07/25/2024 8:38 AM CDT 07/25/2024 10:04 PM CDT Lily Wolf NP LAB MICROBIOLOGY - GENERAL OR DERABLES Final Result Performing Organization Address [facility] de Phone Number JASON [address] [facility] [place] [address] * (ABNORMAL) Lipid panel (07/25/2024 8:38 AM CDT) Cholesterol 148 30 - 199 mg/dL Comment: Interpretive Data Ages < or = 19 years Acceptable: <170 mg/dL Borderline high: 170-199 mg/dL High: >or= 200 mg/dL Ages > or = 20 years Desirable: <200 mg/dL Borderline high: 200-239 mg/dL High: >or= 240 mg/dL Literature References: 1. Expert Panel on Integrated Guidelines for Cardiovascular Health and Risk Reduction in Children and Adolescents. Pediatrics 2011;128:S213 2. NCEP Expert Panel. Circulation 2004;110:227 Current Interpretive Data was last revised on 2017. Triglycerides 204(H) <=149 mg/dL JASON TAPIA Comment: Interpretive Data Ages < or = 9 years Acceptable: <75 mg/dL Borderline high: 75-99 mg/dL High: >or= 100 mg/dL Ages 10 to 20 years Acceptable: <90 mg/dL Borderline high: 90-129 mg/dL High: >or= 130 mg/dL Ages > or = 20 years Desirable: <150 mg/dL Borderline high: 150-199 mg/dL High: 200-499 mg/dL Very high: >or= 499 mg/dL Literature References: 1. Expert Panel on Integrated Guidelines for Cardiovascular Health and Risk Reduction in Children and Adolescents. Pediatrics 2011;128:S213 2. NCEP Expert Panel. Circulation 2004;110:227 Current Interpretive Data was last revised on 2017. HDL 29(L) >=40 mg/dL JASON TAPIA Comment: Interpretive Data Ages < or = 19 years Acceptable: >45 mg/dL Borderline low: 40-45 mg/dL Low: <40 mg/dL Ages > or = 20 years Desirable: >or= 60 mg/dL Low: <40 mg/dL Literature References: 1. Expert Panel on Integrated Guidelines for Cardiovascular Health and Risk Reduction in Children and Adolescents. Pediatrics 2011;128:S213 2. NCEP Expert Panel. Circulation 2004;110:227 Current Interpretive Data was last revised on 2017. LDL, calculated 84 <=129 mg/dL JASON TAPIA Comment: Interpretive Data Ages < or = 19 years Acceptable: <110 mg/dL Borderline high: 110-129 mg/dL High: >or= 130 mg/dL Ages > or = 20 years Optimal: <100 mg/dL Near optimal: 100-129 mg/dL Borderline high: 130-159 mg/dL High: >160 mg/dL Calculated using the Georgi LDL-C estimating equation. This equation was implemented on 2023. Prior to this date LDL-C was estimated using the Friedewald equation. Literature References: 1. Expert Panel on Integrated Guidelines for Cardiovascular Health and Risk Reduction in Children and Adolescents. Pediatrics 2011;128:S213 2. NCEP Expert Panel. Circulation 2004;110:227 3. Georgi Villalobos et al. JOSÉ MIGUEL Cardiol. 2019July 14;5(5):540-548. doi: 10.1001/jamacardio.2020.0013 Current Interpretive Data was last revised on 2023. Non-HDL Cholesterol 119 mg/dL JASON TAPIA Comment: Interpretive Data Ages < or = 19 years Acceptable: <120 mg/dL Borderline high: 120-144 mg/dL High: >145 mg/dL Ages > or = 20 years When triglycerides are >200 mg/dL, Non-HDL cholesterol is a secondary target of therapy with treatment goals that are 30 mg/dL greater than the LDL cholesterol target. Literature References: 1. Expert Panel on Integrated Guidelines for Cardiovascular Health and Risk Reduction in Children and Adolescents. Pediatrics 2011;128:S213 2. NCEP Expert Panel. Circulation 2004;110:227 Current Interpretive Data was last revised on 2017. Chol/HDL ratio 5 [facility] Blood 07/25/2024 8:38 AM CDT 07/25/2024 10:04 PM CDT Lily Wolf NP LAB [place]LOOD [place] [address] [address] [facility] [place] [address] * (ABNORMAL) Comprehensive metabolic panel (07/25/2024 8:38 AM CDT) Sodium 140 135 - 145 mmol/L Potassium, pl 4.4 3.3 - 4.9 mmol/L [facility] Chloride 104 97 - 110 mmol/L [facility] CO2 22 22 - 32 mmol/L [facility] Anion gap 14 2 - 15 mmol/L [facility] BUN 27(H) 6 - 25 mg/dL [facility] Creatinine 2.23(H) 0.80 - 1.30 mg/dL [facility] Glucose 155 70 - 199 mg/dL [facility] Comment: Interpretive Data Fasting glucose >/= 126 mg/dl is diagnostic for diabetes. Fasting is defined as no caloric intake for at least 8 hours. Fasting glucose between 100 mg/dl to 125 mg/dl is diagnostic of prediabetes. In a patient with classic symptoms of hyperglycemia or hyperglycemic crisis, a random glucose >/= 200 mg/dl is diagnostic for diabetes. In the absence of unequivocal hyperglycemia, results should be confirmed by repeat testing. The classification and Diagnosis of Diabetes Diabetes Care 202; 46: S19-S40. Current interpretive data was last revised 2022. Calcium 9.3 8.5 - 10.3 mg/dL [facility] Bilirubin, total <0.2 0.1 - 1.2 mg/dL [facility] Protein, pl 7.0 6.5 - 8.5 g/dL [facility] Albumin 3.6 3.5 - 5.0 g/dL [facility] Alk phos 74 40 - 130 Units/L [facility] ALT 19 7 - 55 Units/L [facility] AST 27 10 - 50 Units/L [facility] Blood 07/25/2024 8:38 AM CDT 07/25/2024 10:04 PM CDT Lily Wolf NP LAB BLOOD ORDERABLES Final Re sult JASON [address] [facility] [place] [address] * POCT hemoglobin A1c (05/19/2024 8:24 AM AQUA AMMONIA OPERATOR) Hemoglobin A1C, POC 6.2 4.0 - 5.6 % Blood 05/19/2024 8:24 AM AQUA AMMONIA OPERATOR Kemi Mueller MD POINT OF CARE TEST ORDERABLES Final Result * DIABETES EYE EXAM (05/10/2024 9:16 AM AQUA AMMONIA OPERATOR) Historical Provider HEALTH MAINTENANCE Final Result * COLONOSCOPY (01/10/2022) Historical Provider HEALTH MAINTENANCE Final Result from Last 3 Months or Most Recently Relevant to Health Maintenance Insurance CIG CIGNA IBEW CIGNA Care Teams Lobby Attendant Relationship Specialty Start Date End Date Lily Wolf NP [address] [place] [address] PCP - General Family Medicine 08/25/24 Sudarshan Funez MD [address] [place] [address] Consulting Physician Cardiovascular Disease 08/25/23 [place] [address] [place] [address] Surgeon Orthopedic Surgery 08/25/23 Hebert Daily MD [address] [place] [address] Consulting Physician Urology 08/25/23 Donavan Knott MD [address] [facility] [address] [place] [address] Consulting Physician Internal Medicine 01/26/24 Mikhail Caceres MD [address] [facility] [address] [place] [address] Referring Physician Gastroenterology 01/26/24 Anita Covarrubias OD [address] [place] [address] Optometry 01/26/24 Cyril Gallardo MD [address] [facility] [address] [place] [address] Referring Physician Nephrology 07/27/24
--- OUTSIDE RECORDS SUMMARY | 2024-09-15 08:58 | XMS_ITS | Clinical Summary ---
Author Organization [facility] Address [address] [place] [address] Care Team Providers Care Blind Eyeletter Name Role Phone Adrian White MD Primary Care Provider [phone] Source Comments [facility],non-owned Affiliates and Associated Physician Practices is amultiple site organization consisting of ambulatory clinics and hospital sitesin [place], [place], [place] and [place]. This disclosure is being madepursuant to the Care Everywhere program and may not contain all information available regarding this patient. Last updated 17.[facility] Allergies No known active allergies Medications * Be aware that medications may not be up to date on this document. Alwaysverify current medications with the patient. amlodipine (NORVASC) 10 MG tablet Take 1 Tab by mouth daily. Refills per Dr. White 30 0 9 Active aspirin EC (ECOTRIN) 81 MG TBEC Take 1 Tab by mouth daily. 0 0 9 Active insulin glargine (LANTUS) injection Inject 16 Units subcutaneously at bedtime. Refills per Dr. White 3 bottles 0 9 Active metoprolol tartrate IR (LOPRESSOR) 25 MG tablet Take 1 Tab by mouth 2 times daily. Refills per Dr. White 60 0 9 Active insulin aspart (NOVOLOG) injection Inject subcutaneously 3 times daily before meals. Refills per Dr. White. BS 71-110 no insulin, 111-140 2u, 141-180 4u, 181-220 6u, 221-260 8u, 261-300 10u, 301-350 12u, over 350 give 15u and call your physician. 2 bottles 0 9 Active Insulin Syringes (Disposable) U-100 0.3 ML MISC Use. Refills per Dr. white 100 0 9 Active lancets (SOFT TOUCH) Use 1 Each once. For QID testing-refills per Dr. 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 Hyperkalemia 11/24/2008 Hypertension 11/24/2008 Diabetes mellitus type II, uncontrolled 11/25/19 09 Leg weakness 11/24/2008 Morbid obesity 11/24/2008 Tingling 11/23/2008 Cerebral infarction 11/23/2008 Overview (01/21/2015): Resolved Problems Problem Noted Date Diagnosed Date Resolved Date Other follow-up examination(V67.59) 11/25/2008 11/27/2008 Immunizations Immunization Administration Dates Next Due PNEUMOCOCCAL PPSV23 11/24/2008 Family History Medical History Relation Name Comments Diabetes Brother Ben Diabetes Father Heart Failure Father Relation Name Status Comments Brother Ben Alive Father Social History Tobacco Use Types Packs/Day Years Used Date Smoking Tobacco: Never Alcohol Use Standard Drinks/Week Comments No 0 (1 standard drink = 0.6 oz pur e alcohol) Sex and Gender Information Value Date Recorded Sex Assigned at Not on file 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 Gender Identity Not on file Sexual Orientation Not on file Last Filed Vital Signs Vital Sign Reading Time Taken Comments Blood Pressure 129/80 12/03/2008 12:00 PM CDT Pulse 81 12/03/2008 12:00 PM CDT Temperature 36.7 C (98 F) 12/03/2008 12:00 PM CDT Respiratory Rate 18 12/03/2008 12:00 PM CDT Oxygen Saturation 97% 12/03/2008 12:00 PM CDT Inhaled Oxygen Concentration - - Weight 137.1 kg (302 lb 4 oz) 12/02/2008 7:00 AM CDT Height 172.7 cm (5' 8) 11/23/2008 10:12 PM CDT Body Mass Index 45.96 11/23/2008 10:12 PM CDT Plan of Treatment Health Maintenance Due Date Last Done Comments COLOGUARD (AGES 45-75) - COL ON CA SCREENING 1961 COLON MONITORING 1961 COLONOSCOPY - COLON CA SCREENING 1961 CT COLONOGRAPHY - COLON CA SCREENING 1961 Colorectal Cancer Screening 1961 FIT - COLON CA SCREENING 1961 FLEX SIG - COLON CA SCREENING 1961 HIV SCREENING 1976 HEPATITIS C SCREENING 05/14/1979 DTAP/TDAP/TD VACCINES (1 - Tdap) 1980 PNEUMOCOCCAL VACCINE 50+ (2 of 2 - PCV) 05/19/2011 11/24/2008 ZOSTER VACCINE (1 of 2) 05/19/2011 LIPID TESTING 11/24/2013 11/24/2008 Respiratory Syncytial Virus (RSV) Vaccine Pt: or over 60 yrs (1 - Risk 60-74 years 1-dose series) 2021 COVID-19 VACCINE (1 - 2023-2 5 season) 2023 DEPRESSION SCREENING 03/16/2024 INFLUENZA VACCINE (#1) 2024 HEPATITIS B VACCINE Aged Out No longe r eligible based on patient's age to complete this topic HIB VACCINE Aged Out No longer eligi ble based on patient's age to complete this topic HPV VACCINE Aged Out No longer eligi ble based on patient's age to complete this topic MENINGOCOCCAL (Group B) VACC INE SHARED DECISION-MAKING Aged Out No longer eligibl e based on patient's age to complete this topic MENINGOCOCCAL GROUPS A/C/Y/W VACCINE Aged Out No longer eligible b ased on patient's age to complete this topic Procedures Procedure Name Priority Date/Time Associated Diagnosis Comments LIPID PROFILE Routine 11/24/2008 6:25 AM CDT Mononeuritis of Unspecified Site from Last 3 Months or Most Recently Relevant to Health Maintenance Results * (ABNORMAL) LIPID PROFILE (11/24/2008 6:25 AM CDT) Cholesterol 148 <200 mg/dl [facility] Triglycerides 147 <200 mg/dl [facility] HDL Cholesterol 32(L) >35 mg/dl [facility] LDL Direct 91.44 <130 mg/dl [facility] BLOOD SPECIMEN / Unknown 11/24/2008 6:25 AM CDT 11/24/2008 7:00 AM CDT us Pallavi Silva MD LAB - CHEMISTRY ORDERABLES Final Result [facility] [address] [id number] from Last 3 Months or Most Recently Relevant to Health Maintenance Advance Directives * Full Code (Latest Code Status on File) Date Activated Date Inactivated Comments 11/23/2008 10:14 PM 12/04/2008 2:44 AM Care Teams Blind Eyeletter Relationship Specialty Start Date End Date Adrian White MD [address] [place] [id number] PCP - General 11/23/08
--- OUTSIDE RECORDS SUMMARY | 2024-09-15 08:58 | XMS_ITS | Continuity of Care Document ---
Author Organization [facility] Address [address] [facility] [address] [place] [address] Phone Care Team Providers Care Educational Psychologist Name Role Phone Jluis Trinidad MD Unavailable [...] OFFICE/OUTPAT IENT VISIT, EST [facility], [address] [facility] [address], [place], [place], [id number], [place] tel:[phone] [facility] burning and irritation (chief complaint)DM II (chief complaint) Dry eye syndrome of bilateral lacrimal glandsMGD (meibomian gland dysfunction )Age-relate d nuclear cataract, bilateral Dec-3 3 [address] [facility], [place], [place], [id number] , [place]. tel:[phone] Referring Provider: No PCP A.. Family History Family Member Type Diagnosis Age At Onset No Information Payers Payer name Insurance type Covered constitution party ID Authortommiea tirosalino(s) EMILIANO IBEW PLAN CI [id number] Social History Type Description Quantity Date Captured [...] Pataday daily OU as advised by his Manager Hris, but that hasn't seemed to help much, [...] Pataday daily OU as advised by his Manager Hris, but that hasn't seemed to help much, [...]
--- OUTSIDE RECORDS SUMMARY | 2024-09-15 08:58 | XMS_ITS | Continuity of Care Document ---
Author Organization [facility] Address [address] [place] [address] Phone Care Team Providers Care Supervisor Phosphoric Acid Name Role Phone Sergei Lockhart MD, Brendon Unavailable Unavailabl e Procedures Procedure Date POLYSOM 6/>YRS CPAP 4/> PARM Advance Directives Directive Yes / No Effective Date File Name No Information Encounters Encounter Description Practice Location Reason(s) For Visit Diagnoses Date Provider [facility], [address] , [place], [address], [place] tel:[phone] [facility] No Information 2022 Sergei Olivas. [address] [facility], [place], [place], [id number], [place]. tel:[phone] Family History Family Member Type Diagnosis Age At Onset No Information Payers Payer name Insurance type Covered libertarian ID Authoriza tirosalino(s) Self Pay [id number] Social History Type Description Quantity Date Captured Comments Sex Male Smoking Status No Information Chief Complaint And Reason For Visit No Information History Of Present Illness Encounter Date Complaint History Of Prese nt Illness No Information Instructions Date Instruction Additional Infor mation No Information Assessments Type Assessment Date No Information
--- OUTSIDE RECORDS SUMMARY | 2024-09-15 08:58 | XMS_ITS | Clinical Summary ---
Author Organization [facility] [place] [address] Address [address] [place] [address] Care Team Providers Care Field Application Engineer Name Role Phone Sudarshan Funez MD Unavailable William Delarosa MD Unavailable Hebert Daily MD Unavailable [phone] Donavan Knott MD Unavailable [phone] Mikhail Caceres MD Unavailable [phone] Anita Covarrubias OD Unavailable [phone] Cyril Gallardo MD Unavailable [phone] Lily Wolf NP Primary Care Provider [phone] Allergies Active Allergy Reactions Criticality Noted Date Comments Influenza Virus Vaccines Unknown 02/15/2019 Pneumococcal Vaccine Unknown 02/15/2019 Tetanus Vaccines And Toxoid Unknown 02/16/20 19 Medications blood-glucose meter (OneTouch Verio Meter) misc OneTouch Verio Meter Active blood glucose diagnostic (OneTouch Verio test strips) strip OneTouch Verio test strips Active aspirin 81 mg enteric coated tablet Take 1 tablet (81 mg total) by mouth daily Active ascorbic acid (VITAMIN C) 500 mg tablet,chewable Take 1 tablet/chew tab (500 mg total) by mouth electrotype molder before breakfast Active cholecalciferol , vitamin D3, 5,000 unit/mL drops Take 1 tablet/capsule by mouth electrotype molder before breakfast Active albuterol HFA (PROVENTIL HFA,VENTOLIN [...] the skin every 7 days 6 mL 05/20/19 025 Active NovoLOG 100 unit/mL (3 mL) [...] total) under the skin daily 70.2 mL 05/20/19 026 Active Additional Information Patient taking differently: 80 Unitssubcutaneous Daily, Reported on 07/25/2024 Farxiga 5 mg tabletIndicatio ns:Chronic Kidney Disease,type 2 diabetes mellitus Take 1 tablet (5 mg total) by mouth daily 90 tablet 05/20/19 026 Active tamsulosin (FLOMAX) 0.4 mg extended release capsule Take 1 capsule (0.4 mg total) by mouth nightly 100 capsule 07/26/19 25 Active amLODIPine (NORVASC) 10 mg tablet Take 1 tablet (10 mg total) by mouth daily 100 tablet 07/26/19 25 Active metoprolol tartrate (LOPRESSOR) 25 [...] 01/26/2024 Assessment & Plan (01/26/2024 9:59 AM UNDERWRITING INTERNSHIP): -constipation guidelines -add senna, senakot Hyperlipidemia associated with type 2 diabetes m ernst 01/26/2024 Assessment & Plan (07/25/2024 8:36 AM CDT): Lipid abnormalities are stable, reviewed [facility] lipid [facility] in [facility]. Continue statin therapy. Crestor (rosuvastatin) Order for lipid panel was given today to be obtained. Pt voiced understanding of lab drawn and continuation of current medication regimen. Assessment & Plan (01/26/2024 10:02 AM UNDERWRITING INTERNSHIP): Lipid abnormalities are stable. Pharmacotherapy as ordered. Continue atorvastatin twice weekly Lab Results Component Value Date LDLCALC 57 01/18/2024 Lipids will be reassessed in 6 months. Cutaneous candidiasis 01/26/2024 Assessment & Plan (01/26/2024 10:09 AM UNDERWRITING INTERNSHIP): -ketoconazole -betamethasone sparingly -continue scent-free products Chronic [...] counseling. Assessment & Plan (01/26/2024 10:28 AM UNDERWRITING INTERNSHIP): BMI Follow-up includes: exercise counseling. Assessment & Plan (11/30/2023 8:32 AM CDT): BMI Follow-up includes: exercise counseling. Stage 3b chronic kidney disease 08/25/2023 Assessment & Plan (07/25/2024 8:36 AM CDT): Managed by Nephrology. Rechecking labs today. He has been taken off of losartan Last GFR was 42 Assessment & Plan (01/26/2024 10:06 AM UNDERWRITING INTERNSHIP): Lab Results Component Value Date GFRNAA 42 (L) 01/18/2024 Lab Results Component Value Date CREATININE 1.80 (H) 01/18/2024 Lab Results Component Value Date BUNSER 24 01/18/2024 Continue to follow a Renal diet that is low in sodium, potassium, and phosphorus. Avoid/limit foods such as fast food items, fried/breaded foods, canned goods, deli meats, gravies/sauces, bananas, tomatoes, oranges, milk, dark myriam and chocolate. [place] juice, citrus juices, and tomato juice are also high in potassium. Do not use salt substitutes, as they may contain potassium. Additional resources available online from the National Kidney Foundation at www.kidney.org/nutrition Labs are stable. Continue tight blood pressure control. Encouraged adequate fluid intake. Avoid nsaids. Will continue to monitor. 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 Last GFR that we have available was 57 in 2021. Will try to get updated labs. Tremor, unspecified 02/11/2021 Assessment & Plan (03/02/2021 1:12 PM UNDERWRITING INTERNSHIP): NEUROPSYCHOLOGICAL EVALUATION: INTERPRETATION (for Assessment and Plan, see further below) Normal cognitive performance on MMSE; Normal cognitive performance on MoCA. No evidence of depression on GDS; No evidence of depression on HADS. No evidence of anxiety on HADS. Mild evidence of daytime drowsiness on Hilliard scale. No evidence of REM Behavior Disorder [...] the tremor has worsened. This encounter's total ldnv-ln-jffx time was greater than 60 minutes. I [...] in 2008. Sees Neurology yearly. History of Guillain-Webster syndrome 11/27/2008 Overview (08/25/2023): Does not get influenza vaccine Diabetes mellitus type II, controlled 11/24/2008 Assessment & Plan (07/25/2024 8:35 AM CDT): Has established with endocrinology here in [place]. Currently on insulin and mounjaro. Lab Results Component Value Date HGBA1C 6.2 05/19/2024 Lab Results Component Value Date SCRA1C 9.1 08/19/2023 Assessment & Plan (01/26/2024 10:05 AM UNDERWRITING INTERNSHIP): Stable. A1c 6.8%. managed by [facility]. Also seeing special educator. Assessment & Plan (08/25/2023 1:30 PM CDT): Uncontrolled. Hemoglobin A1c done at outside office. Results will be scanned into [facility] and A1c was 9.1%. He is currently on max dose of Ozempic at 2 mg weekly and max dose metformin a 1000 mg b.i.d.. He has an appointment with an paper bag inspector in a couple weeks. He is going [...] managing Assessment & Plan (01/26/2024 10:06 AM UNDERWRITING INTERNSHIP): Borderline today. I do not want to [...] Overview (08/25/2023): Tingling of skin 11/23/2008 01/26/2024 Encounters Date Type Department Care Team Description 07/27/2024 Telephone [facility] at [address] [phone] Lily Wolf NP PA for Betamethasone Dipropionate 0.05% ointment 07/26/2024 Results Follow-Up [facility] at [address] [phone] Lily Wolf NP Hepatitis B surface antibody (immune status) Blood, Hepatitis B core antibody, total Blood, Hepatitis B Surface Antigen Blood, Additional followed-up results: 9 07/26/2024 Orders Only [facility] at [address] [phone] Lily Wolf NP 07/25/2024 8:45 AM CDT Lab [facility] at [address] [phone] Hyperlipidemia associated with type 2 diabetes mellitus (HCC) (Primary Dx); Hypertension associated with diabetes (HCC) 07/25/2024 8:38 AM CDT - 07/25/2024 11:59 PM CDT Hospital Encounter [place] [phone] Need for hepatitis B screening test; Controlled type 2 diabetes mellitus with stage 3 chronic kidney disease, unspecified whether intermediate teacher insulin use (HCC); Screening PSA (prostate specific antigen); Thyroid disorder screen; Hyperlipidemia associated with type 2 diabetes mellitus (HCC); Hypertension associated with diabetes (HCC); Need for hepatitis C screening test; Encounter for hepatitis C screening test for low risk patient Discharge Disposition: Discharge to home or self care 07/25/2024 8:00 AM CDT Office Visit [facility] at [address] [phone] Lily Wolf NP Hypertension associated with diabetes (HCC) (Primary Dx); Hyperlipidemia associated with type 2 diabetes mellitus (HCC); Stage 3b chronic kidney disease (HCC); Controlled type 2 diabetes mellitus with stage 3 chronic kidney disease, unspecified whether half-way insulin use (HCC); Insect bite of right [...] with urinary frequency from Last 3 Months Immunizations Immunization Administration Dates Next Due Influenza, Unspecified 11/30/2023(Deferr ed: Patient Refused),03/16/2023(Deferred: Patient Refused) Pneumococcal Polysaccharide PPV23 11/24/2008 Sars-CoV-2, Unspecified 06/20/2020 Surgical History Surgery Date Site/Laterality Comments KNEE SURGERY 03/16/2004 - 03/15/2005 Left VASECTOMY 2009 Medical History Medical History Date Comments COPD (chronic obstructive pu lmonary disease) (HCC) Hypertension 2000 Diabetes mellitus (HCC) 1999 Arthritis Gout Obesity Pneumonia 2017 Sleep apnea 2005 Guillain De Santiago syndrome 2009 Did not require intubation. 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 Family History Medical History Relation Name Comments Diabetes Brother Nelson Hypertension Brother Nelson Diabetes Father Nelson Heart disease Father Nelson Hypertension Father Nelson COPD Mother Marleny Heart disease Mother Marleny Hypertension Mother Marleny Cancer Other 1 Diabetes Other 1 Hypertension Other 1 ADD / ADHD Other 2 Granddaughter Cancer Paternal Grandmother Reena Cancer Sister Cortney ADD / ADHD Son 1 Francesco Hypertension Son 1 Francesco Car Accident Son 2 William Tremor Neg Hx Relation Name Status Comments Brother Nelson Alive good health Father Nelson (Age 62) bypass, he art disease, copd Mother Marleny (Age 72) copd, hear t disease Other 1 Other 2 Granddaughter Alive Paternal Grandmother Reena Alive Sister Cortney Alive breast cancer Son 1 Francesco Alive Son 2 William (Age 24) Social History Tobacco Use Types Packs/Day Years Used Date Smoking Tobacco: Never Smokeless Tobacco: Never Tobacco Cessation:Counseling Given: Not Answered PHQ-2 Answer Date Recorded PHQ-2 Total Score (If total score is 3 or more points, staff should administer the PHQ-9) 0 07/25/2024 Sex and Gender Information Value Date Recorded Sex Assigned at Not on file Legal Sex Male 12:43 AM UNDERWRITING INTERNSH[employer] Gender Identity Male 12/22/2019 8:16 AM CDT Sexual Orientation Straight 12/22/2019 8: 16 AM CDT 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 Not on file Not on file Not on file Obstetrics History Last Filed Vital Signs Vital Sign Reading [...] 07/25/2024 8:00 AM CDT Plan of Treatment Health Maintenance Due Date Last Done Comments Regular Well Visit/Exam 18-64 05/19/1979 Pneumococcal vaccine <65 (2 of 2 - PCV) 11/24/2009 11/24/2008 Zoster Vaccine (1 of 2) 05/19/2011 Foot Exam 08/24/2024 08/25/2023 Influenza Vaccine (#1) 2024 Hemoglobin A1C 11/19/2024 05/19/2024, 06/2023, 08/19/2023 Dilated Eye Exam 05/10/2025 05/10/2024, 05/07/2023 Albumin Creatinine Ratio, Urine 07/25/2025 , 11/13/2023 Depression Screening 07/25/2025 07/25/2024, 01/26/2024, 11/30/2023, Additional history exists Lipid Panel 07/25/2025 07/25/2024, 06/2023, 08/19/2023, Additional history exists eGFR 07/25/2025 07/25/2024, 11/0 06/2023, 05/15/2023 Prostate Cancer Screening-PSA 07/25/2026 07/25/2024, 05/28/2023 Colon Cancer Screening-Colonoscopy 01/11/2032 01/10/2022 Colon Cancer Screening-CT Colonography Discontinued 01/10/2022 Colon Cancer Screening-DNA Stool Discontinued 01/11/20 Colon Cancer Screening-FIT Discontinued 01/10/2022 Colon Cancer Screening-Sigmoidoscopy Discontinued 01/10/2022 Covid-19 Vaccine Completed 01/27/2024, , 07/19/2021, Additional history exists Hepatitis B Screening Completed 07/25/2024 Hepatitis C Screening Completed 07/25/2024 DTaP/Tdap/Td Vaccine Discontinued Procedures Procedure Name Priority Date/Time Associated Diagnosis [...] stage 3 chronic kidney disease, unspecified whether intermediate teacher insulin use (HCC) HEPATITIS C ANTIBODY Routine [...] HEMOGLOBIN A1C Routine 05/19/2024 8 :24 AM UNDERWRITING INTERNSHIP Type 2 diabetes mellitus with stage 4 chronic kidney disease, with long-term current use of insulin (HCC) HM DIABETES EYE EXAM Routine 05/10/2024 9:16 AM UNDERWRITING INTERNSHIP HM COLONOSCOPY Routine 01/10/2022 from Last 3 Months [...] LAB BLOOD ORDERABLES Final Re sult [facility] [address] [place] [address] * Differential, auto (07/25/2024 8:38 AM CDT) Neutrophil abs 3.59 1.50 - 6.50 K/cumm Imm gran abs 0.02 0.00 - 0.10 K/cumm [facility] Lymphocyte abs 1.08 0.80 - 3.30 K/cumm [facility] Monocyte abs 0.56 0.20 - 0.80 K/cumm [facility] Eosinophil abs 0.17 0.00 - 0.50 K/cumm [facility] Basophil abs 0.04 0.00 - 0.10 K/cumm [facility] Neutrophil pct 65.7 % [facility] Comment: Interpretive Data Percent cell count reference ranges are not reported, since discordance with absolute values may lead to misinterpretation of CBC data. Current Interpretive Data was last revised on 2017. Imm gran pct 0.4 % [facility] Comment: Interpretive Data Percent cell count reference ranges are not reported, since discordance with absolute values may lead to misinterpretation of CBC data. Current Interpretive Data was last revised on 2017. Lymphocyte pct 19.8 % [facility] Comment: Interpretive Data Percent cell count reference ranges are not reported, since discordance with absolute values may lead to misinterpretation of CBC data. Current Interpretive Data was last revised on 2017. Monocyte pct 10.3 % [facility] Comment: Interpretive Data Percent cell count reference ranges are not reported, since discordance with absolute values may lead to misinterpretation of CBC data. Current Interpretive Data was last revised on 2017. Eosinophil pct 3.1 % [facility] Comment: Interpretive Data Percent cell count reference ranges are not reported, since discordance with absolute values may lead to misinterpretation of CBC data. Current Interpretive Data was last revised on 2017. Basophil pct 0.7 % [facility] Comment: Interpretive Data Percent cell count reference ranges are not reported, since discordance with absolute values may lead to misinterpretation of CBC data. Current Interpretive Data was last revised on 2017. Blood 07/25/2024 8:38 AM CDT 07/25/2024 10:04 PM CDT us Lily Wolf NP LAB BLOOD ORDERABLES Final Re sult Performing Organization Address [facility] Phone Number [facility] [address] [facility] [place] [address] * Thyroid Function Heard (07/25/2024 8:38 AM CDT) TSH 2.73 0.30 - 4.20 mcIUnit/mL Blood 07/25/2024 8:38 AM CDT 07/25/2024 10:04 PM CDT Lily Wolf NP LAB BLOOD ORDERABLES Final Re sult Performing Organization Address [facility] Phone Number [facility] [address] [facility] [place] [address] * PSA screen (07/25/2024 8:38 AM CDT) PSA-Total 0.23 <=5.40 ng/mL Comment: Interpretive Data [...] ORDERABLES Final Re sult Performing Organization Address [facility]/ZIP Co de Phone Number JASON TAP[place] [address] [place] [address] * (ABNORMAL) CBC with auto differential (07/25/2024 8:38 AM CDT) Pathologist [facility] WBC 5.46 3.80 - 9.90 K/cumm Hgb 14.8 13.0 - 17.5 g/dL [facility] Hct 47.8 38.9 - 50.3 % [facility] Plt 173 150 - 400 K/cumm [facility] MPV 12.5(H) 9.1 - 12.3 fL [facility] RBC 5.36 4.30 - 5.80 M/cumm [facility] MCV 89.2 81.3 - 96.[address] [facility] CH MCH 27.6 27.1 - 33.3 pg [facility] MCHC 31.0(L) 32.3 - 35.7 g/dL [facility] CH RDW CV 15.2(H) 11.1 - 14.9 % [facility] RDW SD 50.0(H) 35.7 - 48.1 fL [facility] NRBC abs 0.00 0.00 - 0.01 K/cumm [facility] Blood 07/25/2024 8:38 AM CDT 07/25/2024 10:04 PM CDT Lily Wolf NP LAB BLOOD ORDERABLES Final Re sult [facility] [place] [place] [address] * Hepatitis C antibody Blood (07/25/2024 8:38 AM CDT) [facility] Hep C Ab Nonreactive Nonreactive Comment: Interpretive [...] OR DERABLES Final Result Performing Organization Address City/[facility]/ZIP Co de Phone Number JASON [place] [address] [employer] [place] [address] * (ABNORMAL) Albumin Creatinine Ratio, Urine (07/25/2024 8:38 AM CDT) Albumin Ur 3,573.3 mg/L Comment: Interpretive Data No reference range established. Current interpretive data was last revised 2018. Creatinine Ur 91.7 mg/dL [facility] Comment: Interpretive Data No reference range established. Current interpretive data was last revised 2018. Albumin Creatinine Ratio, Ur 3,897(H) 1 - 29 mg/g JASON Urine 07/25/2024 8:38 AM CDT 07/25/2024 10:04 PM CDT Lily Wolf NP LAB URINE ORDERABLES Final Re sult Performing Organization Address [facility] Co de Phone Number JASON [place] [address] [employer] [place] [address] * Hepatitis B core antibody, total Blood (07/25/2024 8:38 AM CDT) Pathologist [facility] Hep B core IgG/IgM Nonreactive Nonreactive Comment:Testing performed by : [facility], [address] [facility], [place]., [address] Blood 07/25/2024 8:38 AM CDT 07/26/2024 10:01 AM CDT Lily Wolf NP LAB MICROBIOLOGY - GENERAL OR DERABLES Final Result Performing Organization Address City/[facility] Co de Phone Number JASON T[place] [address] [place] [place] [address] * Hepatitis B surface antibody (immune status) Blood (07/25/2024 8:38 AM CDT) HBsAb (immune status) Nonreactive Comment: Interpretive Data [...] OR DERABLES Final Result Performing Organization Address [facility] de Phone Number [facility] [address] [facility] [employer] [place] [address] * Hepatitis B Surface Antigen Blood (07/25/2024 8:38 AM CDT) HepBsAg Nonreactive Nonreactive Blood 07/25/2024 8:38 AM CDT 07/25/2024 10:04 PM CDT Lily Wolf NP LAB MICROBIOLOGY - GENERAL OR DERABLES Final Result Performing Organization Address [facility] [place] [address] [facility] [employer] [place] [address] * (ABNORMAL) Lipid panel (07/25/2024 8:38 AM [...] on 2017. Triglycerides 204(H) <=149 mg/dL JASON Comment: Interpretive Data Ages < or = [...] on 2017. HDL 29(L) >=40 mg/dL J[facility]ON Comment: Interpretive Data Ages < or = [...] 2017. LDL, calculated 84 <=129 mg/dL J[facility]ON Comment: Interpretive Data Ages < or = 19 years Acceptable: <110 mg/dL Borderline high: 110-129 mg/dL High: >or= 130 mg/dL Ages > or = 20 years Optimal: <100 mg/dL Near optimal: 100-129 mg/dL Borderline high: 130-159 mg/dL High: >160 mg/dL Calculated using the Laureano LDL-C estimating equation. This equation was implemented on 2023. Prior to this date LDL-C was estimated using the Friedewald equation. Literature References: 1. Expert Panel on Integrated Guidelines for Cardiovascular Health and Risk Reduction in Children and Adolescents. Pediatrics 2011;128:S213 2. NCEP Expert Panel. Circulation 2004;110:227 3. Georgi M et al. JOSÉ MIGUEL Cardiol. 2020 July 14;5(5):540-548. doi: 10.1001/jamacardio.2020.0013 Current Interpretive Data was last revised on 2023. Non-HDL Cholesterol 119 mg/dL [facility] Comment: Interpretive Data Ages < or = [...] LAB BLOOD ORDERABLES Final Re sult JASON [address] [place] [address] * (ABNORMAL) Comprehensive metabolic panel (07/25/2024 8:38 [...] classification and Diagnosis of Diabetes Diabetes Care 2021; 46: S19-S40. Current interpretive data was last [...] NP LAB BLOOD ORDERABLES Final Re sult [facility] [address] [place] [address] * POCT hemoglobin A1c (05/19/2024 8:24 AM UNDERWR[employer]ING INTERNSH[employer]) [facility] Hemoglobin A1C, POC 6.2 4.0 - 5.6 % Blood 05/19/2024 8:24 AM UND[employer]ING INTER[employer] Kemi Mueller MD POINT OF CARE TEST ORDERABLES Final Result * DIABETES EYE EXAM (05/10/2024 9:16 AM [employer]) Historical Provider HEALTH MAINTENANCE Final Result * COLONOSCOPY (01/10/2022) Historical Naima HUERTAS HEALTH MAINTENANCE Final Result from Last 3 Months or Most Recently Relevant to Health Maintenance Insurance Care Teams Field Application Engineer Relationship Specialty Start Date End Date Lily Wolf NP [address] [place] [address] PCP - General Family Medicine 08/25/24 Sudarshan Funez MD [address] [place] [address] Consulting Physician Cardiovascular Disease 08/25/23 [place] [address] [place] [address] Surgeon Orthopedic Surgery 08/25/23 Hebert Daily MD [address] [facility] [address] [place] [address] Consulting Physician Urology 08/25/23 Donavan Knott MD [address] [facility] [address] [place] [address] Consulting Physician Internal Medicine 01/26/24 Mikhail Caceres MD [address] [facility] [address] [place] [address] Referring Physician Gastroenterology 01/26/24 Anita Covarrubias OD [address] [place] [address] Optometry 01/26/24 Cyril Gallardo MD [address] [place] [address] Referring Physician Nephrology 07/27/24
--- OUTSIDE RECORDS SUMMARY | 2024-09-15 08:59 | XMS_ITS | Clinical Summary ---
Author Organization [facility] Address [address] [place] [address] Phone Care Team Providers Care Military Science Teacher Name Role Phone Leon Shultz DO Primary Care Provider [phone] Allergies Active Allergy Reactions Criticality Noted Date Comments Influenza Vaccines Unknown 02/15/2019 Pneumococcal Vaccine Unknown 02/15/2019 Tetanus Toxoids Unknown 02/15/2019 Medications Jardiance 25 MG tablet Take 1 tablet by mouth 1 (one) time each day 1 Active aspirin (ST PAOLA) 81 MG EC tablet Take 81 mg by mouth daily 9 Active glipiZIDE (GLUCOTROL) 10 MG tablet Take 10 mg by mouth 2 (two) times a day 1 Active metFORMIN (GLUCOPHAGE) 500 MG tablet Take 1,000 mg by mouth 2 (two) times a day 1 Active metoprolol tartrate (LOPRESSOR) 25 MG tablet Take 25 mg by mouth 2 (two) times a day 1 Active rosuvastatin (CRESTOR) 40 MG tablet Take 40 mg by mouth 1 (one) time each day 1 Active Lancets (OneTouch Delica Plus [id number]) misc USE TO TEST TWICE A DAY 2 Active OneTouch Verio test strip USE TO CHECK BLOOD SUGAR TWICE A DAY 2 Active amLODIPine-kathia zepril (LOTREL) 10-20 MG per capsule Take 1 capsule by mouth daily Active gabapentin (NEURONTIN) 300 MG capsule PLEASE SEE ATTACHED FOR DETAILED DIRECTIONS 2 Active tamsulosin (FLOMAX) 0.4 MG 24 hr capsule TAKE 1 CAPSULE BY MOUTH EVERY DAY AT BEDTIME 2 Active Active Problems Problem Noted Date Diagnosed Date Tremor 02/11/2021 Overview (04/22/2021): Last Assessment & Plan: NEUROPSYCHOLOGICAL EVALUATION: INTERPRETATION (for Assessment and Plan, see further below) Normal cognitive performance on MMSE; Normal cognitive performance on MoCA. No evidence of depression on GDS; No evidence of depression on HADS. No evidence of anxiety on HADS. Mild evidence of daytime drowsiness on [place] scale. No evidence of REM Behavior Disorder [...] the tremor has worsened. This encounter's total ujdf-kg-obvh time was greater than 60 minutes. I [...] am NOT ordering a referral to Neurology. FH: premature coronary heart disease 02/15/2019 Other chest pain 02/15/2019 Bronchitis 07/05/2018 Cerebrovascular accident 07/05/2018 Overview (10/30/2020): Chronic obstructive pulmonary disease 07/05/2018 Type 2 diabetes mellitus 07/05/2018 Guillain-Jermyn syndrome 11/27/2008 Hyperkalemia 11/24/2008 Hypertension 11/24/2008 Morbid obesity 11/24/2008 Type II diabetes mellitus uncontrolled 9 Muscle weakness of limb 11/24/2008 Tingling of skin 11/23/2008 Immunizations Immunization Administration Dates Next Due Pneumococcal Polysaccharide 11/24/2008 Sars-cov-2, Unspecified 06/20/2020 Family History Medical History Relation Comments Diabetes mellitus Father Heart disease Father COPD Mother Heart valve disorder Mother Relation Status Comments Father Mother Social History Tobacco Use Types Packs/Day Years Used Date Smoking Tobacco: Never Smokeless Tobacco: Never Tobacco Cessation:Counseling Given: Not Answered Alcohol Use Standard Drinks/Week Comments Never 0 (1 standard drink = 0.6 oz pur e alcohol) Sex and Gender Information Value Date Recorded Sex Assigned at Not on file Legal Sex Male 9:41 AM MDT Gender Identity Not on file Sexual Orientation Not on file Last Filed Vital Signs Vital Sign Reading Time Taken Comments Blood Pressure 132/76 01/22/2022 9:22 AM ALIGNER Pulse - - Temperature 35.6 C (96.1 F) 01/22/2022 9:22 AM ALIGNER Respiratory Rate 18 01/22/2022 9:22 AM ALIGNER Oxygen Saturation - - Inhaled Oxygen Concentration - - Weight 129 kg (285 lb) 01/22/2022 9:22 AM ALIGNER Height 170.2 cm (5' 7) 01/22/2022 9:22 AM ALIGNER Body Mass Index 44.64 01/22/2022 9:22 AM ALIGNER Plan of Treatment Health Maintenance Due Date Last Done Comments Influenza Vaccine (Season Ended) 2024 Insurance CIG[employer] Care Teams Military Science Teacher Relationship Specialty Start Date End Date Leon Shultz DO [address] [place] [id number] PCP - General Internal Medicine 09/03/20
== END 2024-09-15 08:52 | disposition home or self-care (01) ==
PROVIDERS: PCP Nurse Practitioner Family; Visit Provider Podiatrist Foot & Ankle Surgery
DX: M19.072 Primary osteoarthritis, left ankle and foot (principal)
CPT/HCPCS: 73610

== ENCOUNTER 2024-12-28 15:37 | Outpatient (CLI) | payer OTHER, SELFPAY ==
--- OUTSIDE RECORDS SUMMARY | 2022-11-04 19:00 | XMS_ITS | Continuity of Care Document ---
Author Organization [facility] Address [address] [place] [address] Phone Care Team Providers Care Sports Coordinator Name Role Phone Sergei Lockhart MD, Brendon Unavailable Unavailabl e Procedures Procedure Date POLYSOM 6/>YRS CPAP 4/> PARM Advance Directives Directive Yes / No Effective Date File Name No Information Encounters Encounter Description Practice Location Reason(s) For Visit Diagnoses Date Provider [facility], [address] , [place], [address], [place] tel:[phone] [facility] No Information 2022 Sergei Olivas. [address] [facility], [place], [place], [id number], [place]. tel:[phone] Family History Family Member Type Diagnosis Age At Onset No Information Payers Payer name Insurance type Covered libertarian ID Authoriza tirosalino(s) Self Pay [id number] Social History Type Description Quantity Date Captured Comments Sex Male Smoking Status No Information Chief Complaint And Reason For Visit No Information History Of Present Illness Encounter Date Complaint History Of Prese nt Illness No Information Instructions Date Instruction Additional Infor mation No Information Assessments Type Assessment Date No Information
--- OUTSIDE RECORDS SUMMARY | 2023-01-12 02:45 | XMS_ITS | Continuity of Care Document ---
Author Organization [facility] Address [address] [facility] [address] [place] [address] Phone Care Team Providers Care Metropolitan Editor Name Role Phone Jluis Trinidad MD Unavailable [...] OFFICE/OUTPAT IENT VISIT, EST [facility], [address] [facility] [address], [place], [place], [id number], [place] tel:[phone] [facility] burning and irritation (chief complaint)DM II (chief complaint) Dry eye syndrome of bilateral lacrimal glandsMGD (meibomian gland dysfunction )Age-relate d nuclear cataract, bilateral Dec-3 3 Vivi Bazzi. [address] [facility], [place], [place], [id number] , [place]. tel:[phone] Referring Provider: No PCP A.. Family History Family Member Type Diagnosis Age At Onset No Information Payers Payer name Insurance type Covered green party ID Authortommiea tirosalino(s) EMILIANO IBEW PLAN CI [id number] Social History Type Description Quantity Date Captured [...] Pataday daily OU as advised by his Carpenter Maintenance, but that hasn't seemed to help much, [...] Pataday daily OU as advised by his Carpenter Maintenance, but that hasn't seemed to help much, [...]
--- NOTE | ~2024-12-28 | XR_ITS ---
EXAMINATION: XR elbow LT min 3V, 12/28/2024 15:50 CDT HISTORY: L ELBOW PAIN COMPARISON: No comparisons available. Findings: No acute fracture or malalignment. No significant degenerative changes. Soft tissues unremarkable. Impression: No acute fracture or malalignment. Reviewed, dictated and finalized at location P. Impression: No acute fracture or malalignment.
--- OUTSIDE RECORDS SUMMARY | 2024-12-28 17:33 | XMS_ITS | Clinical Summary ---
Author Organization [facility] Address [address] [place] [address] Care Team Providers Care Airbrush Painter Name Role Phone Adrian White MD Primary Care Provider [phone] Source Comments [facility],non-owned Affiliates and Associated Physician Practices is amultiple site organization consisting of ambulatory clinics and hospital sitesin [place], [place], [place] and [place]. This disclosure is being madepursuant to the Care Everywhere program and may not contain all information available regarding this patient. 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 Hyperkalemia 11/24/2008 Hypertension 11/24/2008 Diabetes [...] Failure Father Relation Name Status Comments Brother Bne Alive Father Social History Tobacco Use Types Packs/Day Years Used Date Smoking Tobacco: Never Alcohol Use Standard Drinks/Week Comments No 0 (1 standard drink = 0.6 oz pur e alcohol) Sex and Gender Information Value Date Recorded Sex Assigned at Not on file Legal Sex Male 7:56 AM 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 Gender Identity Not on file Sexual Orientation [...] - Risk 60-74 years 1-dose series) 2021 DEPRESSION SCREENING 03/16/2024 COVID-19 VACCINE (1 - 2023-2 5 season) 2024 INFLUENZA VACCINE (#1) 2024 HEPATITIS B VACCINE [...] 6:25 AM CDT) Cholesterol 148 <200 mg/dl [facility] Triglycerides 147 <200 mg/dl [facility] HDL Cholesterol 32(L) >35 mg/dl [facility] LDL Direct 91.44 <130 mg/dl [facility] BLOOD SPECIMEN / Unknown 11/24/2008 6:25 AM CDT 11/24/2008 7:00 AM CDT us Pallavi Silva MD LAB - CHEMISTRY ORDERABLES Final Result [facility] [address] [id number] from Last 3 Months or Most Recently Relevant to Health Maintenance Advance Directives * Full Code (Latest Code Status on File) Date Activated Date Inactivated Comments 11/23/2008 10:14 PM 12/04/2008 2:44 AM Care Teams Airbrush Painter Relationship Specialty Start Date End Date Adrian White MD [address] [place] [id number] PCP - General 11/23/08
--- OUTSIDE RECORDS SUMMARY | 2024-12-28 17:33 | XMS_ITS | Clinical Summary ---
Author Organization [facility] [address] Address [address] [place] [address] Care Team Providers Care Juvenile Probation Officer Name Role Phone Sudarshan Funez MD Unavailable William Delarosa MD Unavailable [phone] Hebert Daily MD Unavailable [phone] Donavan Knott MD Unavailable [phone] Mikhail Caceres MD Unavailable [phone] Anita Covarrubias OD Unavailable [phone] Cyril Gallardo MD Unavailable [phone] Lily Wolf NP Primary Care Provider [phone] Allergies Active Allergy Reactions Criticality Noted Date Comments Influenza Virus Vaccines Unknown 02/15/2019 Pneumococcal Vaccine Unknown 02/15/2019 Tetanus Vaccines And Toxoid Unknown 02/16/20 19 Varicella Virus Vaccine Live Rash Medium 025 Medications blood-glucose meter (OneTouch Verio Meter) misc OneTouch Verio Meter Active blood glucose diagnostic (OneTouch Verio test strips) strip OneTouch Verio test strips Active aspirin 81 mg enteric coated tablet Take 1 tablet (81 mg total) by mouth daily Active ascorbic acid (VITAMIN C) 500 mg tablet,chewable Take 1 tablet/chew tab (500 mg total) by mouth film rental clerk before breakfast Active cholecalciferol, vitamin D3, 5,000 unit/mL drops Take 1 tablet/capsule by mouth film rental clerk before breakfast Active albuterol HFA (PROVENTIL HFA,VENTOLIN [...] a day 60 g 01/26/20 24 Active tamsulosin (FLOMAX) 0.4 mg extended release [...] 07/26/19 25 Active rosuvastatin (CRESTOR) 40 mg tabletIndication s:Hyperlipidemia associated with type 2 diabetes mellitus (HCC) Take twice weekly 90 tablet 1 07/26/19 25 Active terbinafine (LamiSIL) 250 mg tabletIndication s:Onychomycosis Take 1 tablet (250 mg total) by mouth daily 90 tablet 07/26/19 25 Active betamethasone dipropionate (DIPROSONE) 0.05 % ointment Apply topically 2 (two) times a day Until healed 30 g 07/26/19 25 Active desoximetasone (TOPICORT) 0.25 % ointment Apply topically 2 (two) times a day Formulary alternative to betamethasone 30 g 07/27/19 25 026 Active Farxiga 5 mg tabletIndication s:Chronic Kidney Disease,type 2 diabetes mellitus Take 1 tablet (5 mg total) by mouth daily 90 tablet 3 12/13/19 25 026 Active NovoLOG 100 unit/mL (3 mL) pen for injectionIndicat ions:Type 2 diabetes mellitus with stage 4 chronic kidney disease, with long-term current use of insulin (HCC) Inject 10-30 Units under the skin 2 (two) times a day with lunch and dinner 54 mL 3 12/13/19 25 026 Active tirzepatide (Mounjaro) 15 mg/0.5 mL pen injector injectionIndicat ions:Type 2 diabetes mellitus with stage 4 chronic kidney disease, with long-term current use of insulin (HCC) Inject 0.5 mL (15 mg total) under the skin every 7 days 2 mL 2 12/13/19 25 Active TRESIBA 100 unit/mL (3 mL) pen for injectionIndicat ions:Type 2 diabetes mellitus with stage 4 chronic kidney disease, with long-term current use of insulin (HCC) Inject 0.8 mL (80 Units total) under the skin daily 72 mL 3 12/13/19 25 026 Active Dexcom G7 Sensor deviceIndication s:Type 2 diabetes mellitus with stage 4 chronic kidney disease, with long-term current use of insulin ([facility]) Use one sensor every 10 days ( via DME ) 12/13/19 25 Active lifitegrast (Xiidra) 5 % dropperette Administer into affected eye(s) 2 (two) times a day 025 Discontin ued(Patie nt Reported) NovoLOG 100 unit/mL (3 mL) pen for injectionIndicat ions:Type 2 diabetes mellitus with stage 4 chronic kidney disease, with long-term current use of insulin ([facility]) Inject 10-30 Units under the skin daily with dinner 27 mL 1 05/20/19 25 025 Discontin ued(Reord er) TRESIBA 100 unit/mL (3 mL) pen for injectionIndicat ions:Type 2 diabetes mellitus with stage 4 chronic kidney disease, with long-term current use of insulin ([facility]) Inject 0.78 mL (78 Units total) under the skin daily 70.2 mL 3 05/20/19 25 025 Discontin ued(Reord er) Farxiga 5 mg tabletIndication s:Chronic Kidney Disease,type 2 diabetes mellitus Take 1 tablet (5 mg total) by mouth daily 90 tablet 3 05/20/19 25 025 Discontin ued(Reord er) tirzepatide (Mounjaro) 15 mg/0.5 mL pen injector injectionIndicat ions:Type 2 diabetes mellitus with stage 4 chronic kidney disease, with long-term current use of insulin (HCC) Inject 0.5 mL (15 mg total) under the skin every 7 days 2 mL 2 11/19/19 25 025 Discontin ued(Reord er) Active Problems Problem Noted Date Diagnosed Date [...] 01/26/2024 Assessment & Plan (01/26/2024 9:59 AM SINTER FEEDER): -constipation guidelines -add senna senakot Hyperlipidemia associated with type 2 diabetes himanshu dukes 01/26/2024 Assessment & Plan (07/25/2024 8:36 AM CDT): Lipid abnormalities are stable, reviewed previous lipid levels in [facility]. Continue statin therapy. Crestor (rosuvastatin) Order for lipid panel was given today to be obtained. Pt voiced understanding of lab drawn and continuation of current medication regimen. Assessment & Plan (01/26/2024 10:02 AM SINTER FEEDER): Lipid abnormalities are stable. Pharmacotherapy as ordered. Continue atorvastatin twice weekly Lab Results Component Value Date LDLCALC 57 01/18/2024 Lipids will be reassessed in 6 months. Cutaneous candidiasis 01/26/2024 Assessment & Plan (01/26/2024 10:09 AM SINTER FEEDER): -ketoconazole -betamethasone sparingly -continue scent-free products Chronic [...] counseling. Assessment & Plan (01/26/2024 10:28 AM SINTER FEEDER): BMI Follow-up includes: exercise counseling. Assessment & Plan (11/30/2023 8:32 AM CDT): BMI Follow-up includes: exercise counseling. Stage 3b chronic kidney disease 08/25/2023 Assessment & Plan (07/25/2024 8:36 AM CDT): Managed by Nephrology. Rechecking labs today. He has been taken off of losartan Last GFR was 42 Assessment & Plan (01/26/2024 10:06 AM SINTER FEEDER): Lab Results Component Value Date GFRNAA 42 (L) 01/18/2024 Lab Results Component Value Date CREATININE 1.80 (H) 01/18/2024 Lab Results Component Value Date BUNSER 24 01/18/2024 Continue to follow a Renal diet that is low in sodium, potassium, and phosphorus. Avoid/limit foods such as fast food items, fried/breaded foods, canned goods, deli meats, gravies/sauces, bananas, tomatoes, oranges, milk, dark myriam and chocolate. Smilax juice, citrus juices, and tomato juice are also high in potassium. Do not use salt substitutes, as they may contain potassium. Additional resources available online from the National Kidney Foundation at www.kidney.org/nutrition Labs are stable. Continue tight blood pressure control. Encouraged adequate fluid intake. Avoid nsaids. Will continue to monitor. Assessment & Plan (08/25/2023 1:36 PM CDT): Patient has a mirror framer. Last GFR that we have available was 57 in 2021. Will try to get updated labs. Tremor, unspecified 02/11/2021 Assessment & Plan (03/02/2021 1:12 PM SINTER FEEDER): NEUROPSYCHOLOGICAL EVALUATION: INTERPRETATION (for Assessment and Plan, see further below) Normal cognitive performance on MMSE; Normal cognitive performance on MoCA. No evidence of depression on GDS; No evidence of depression on HADS. No evidence of anxiety on HADS. Mild evidence of daytime drowsiness on [place] scale. No evidence of REM Behavior Disorder [...] the tremor has worsened. This encounter's total hxqw-sa-cgax time was greater than 60 minutes. I [...] in 2008. Sees Neurology yearly. 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 Currently on insulin and mounjaro. Lab Results Component Value Date HGBA1C 6.2 05/19/2024 Lab Results Component Value Date SCRA1C 9.1 08/19/2023 Assessment & Plan (01/26/2024 10:05 AM SINTER FEEDER): Stable. A1c 6.8%. managed by [facility]. Also seeing security intelligence analyst. Assessment & Plan (08/25/2023 1:30 PM CDT): Uncontrolled. Hemoglobin A1c done at outside office. Results will be scanned into [employer] and A1c was 9.1%. He is currently on max dose of Ozempic at 2 mg weekly and max dose metformin a 1000 mg b.i.d.. He has an appointment with an statistical geneticist in a couple weeks. He is going [...] managing Assessment & Plan (01/26/2024 10:06 AM SINTER FEEDER): Borderline today. I do not want to [...] Encounters Date Type Department Care Team Description 12/12/2024 8:30 AM CDT Office Visit [facility] Diabetes [facility] Endocrinology [address] [place] [phone] Kemi Daly MD Type 2 diabetes mellitus with stage 4 chronic kidney disease, with long-term current use of insulin (HCC) (Primary Dx); CKD (chronic kidney disease) stage 4, GFR 15-29 ml/min (HCC); Hyperlipidemia associated with type 2 diabetes mellitus (HCC); Hypertension associated with diabetes (HCC); Class 3 severe obesity due to excess calories with serious comorbidity and body mass index (BMI) of 45.0 to 49.9 in adult from Last 3 Months Immunizations Immunization Administration Dates Next Due Influenza, Unspecified 11/30/2023(Deferr ed: Patient Refused),03/16/2023(Deferred: Patient Refused) Pneumococcal Polysaccharide PPV23 11/24/2008 Sars-CoV-2, Unspecified 06/20/2020 Surgical History Surgery Date Site/Laterality Comments KNEE SURGERY 03/16/2004 - 03/15/2005 Left VASECTOMY 2009 Medical History Medical History Date Comments COPD (chronic obstructive pu lmonary disease) Hypertension 1999 Diabetes mellitus 1999 Arthritis Gout Obesity Pneumonia 2016 Sleep apnea 2004 Guillain De Santiago syndrome 2008 Did not require intubation. 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 Not on file Not on file Not on file Obstetrics History Last Filed Vital Signs Vital Sign Reading Time Taken Comments Blood Pressure 138/82 12/12/2024 8:22 AM CDT Pulse 69 12/12/2024 8:22 AM CDT Temperature 36.4 C (97.5 F) 07/25/2024 8:00 AM CDT Respiratory Rate 16 12/12/2024 8:22 AM CDT Oxygen Saturation 96% 07/25/2024 8:00 AM CDT Inhaled Oxygen Concentration - - Weight 142.4 kg (314 lb) 12/12/2024 8:22 AM CDT Height 172.7 cm (5' 8) 12/12/2024 8:22 AM CDT Body Mass Index 47.74 12/12/2024 8:22 AM CDT Plan of Treatment Health Maintenance Due Date Last Done Comments Regular Well Visit/Exam 18-64 05/19/1979 Pneumococcal vaccine <65 (2 of 2 - PCV) 11/24/2009 11/24/2008 Zoster Vaccine (1 of 2) 05/19/2011 Foot Exam 08/24/2024 08/25/2023 Influenza Vaccine (#1) 2024 Dilated Eye Exam 05/10/2025 05/10/2024, 05/07/2023 Hemoglobin A1C 06/11/2025 12/12/2024, 08/2024, 01/18/2024, Additional history exists Albumin Creatinine Ratio, Urine 07/25/2025 , 11/13/2023 Depression Screening 07/25/2025 07/25/2024, 01/26/2024, 11/30/2023, Additional history exists Lipid Panel 07/25/2025 07/25/2024, 06/2023, 08/19/2023, Additional history exists eGFR 07/25/2025 07/25/2024, 06/2023, 05/15/2023 Prostate Cancer Screening-PSA 07/25/2026 07/25/2024, [...] Procedure Name Priority Date/Time Associated Diagnosis Comments POCT HEMOGLOBIN A1C Routine 12/12/2024 8 :25 AM CDT Type 2 diabetes mellitus with stage 4 chronic kidney disease, with long-term current use of insulin (HCC) POCT GLUCOSE Routine 12/12/2024 8:25 AM CDT Type 2 diabetes mellitus with stage 4 chronic kidney disease, with long-term current use of insulin (HCC) HEPATITIS C ANTIBODY Routine 07/25/2024 8:38 AM CDT Need for hepatitis C screening test Encounter for hepatitis C screening test for low risk patient EGFR Routine 07/25/2024 8:38 AM CDT Hypertension associated with diabetes (HCC) LIPID PANEL Routine 07/25/2024 8:38 AM CDT Hyperlipidemia associated with type 2 diabetes mellitus (HCC) ALBUMIN CREATININE RATIO, URINE Routine 07/25/2024 8:38 AM CDT Controlled type 2 diabetes mellitus with stage 3 chronic kidney disease, unspecified whether detention insulin use (HCC) PSA SCREEN Routine 07/25/2024 8:38 AM CDT Screening PSA (prostate specific antigen) DIABETES EYE EXAM Routine 05/10/2024 9:16 AM SINTER FEEDER COLONOSCOPY Routine 01/10/2022 from Last 3 Months or Most Recently Relevant to Health Maintenance Results * (ABNORMAL) POCT hemoglobin A1c (12/12/2024 8:25 AM CDT) Hemoglobin A1C, POC 6.3(A) 4.0 - 5.6 % Blood 12/12/2024 8:25 AM CDT Kemi Mueller MD POINT OF CARE TEST ORDERABLES Final Result * POCT glucose (12/12/2024 8:25 AM CDT) Glucose Blood, POC 176 Normal Fasting 70 - 100, Random <200 mg/dL Blood 12/12/2024 8:25 AM CDT Kemi Mueller MD POINT OF CARE TEST ORDERABLES Final Result * (ABNORMAL) eGFR (07/25/2024 8:38 AM CDT) [...] LAB BLOOD ORDERABLES Final Re sult JASON [address] Department [place] [address] * PSA screen (07/25/2024 8:38 AM CDT) [...] ORDERABLES Final Re sult Performing Organization Address [facility] de Phone Number JASON [address] [place] [address] * Hepatitis C antibody Blood (07/25/2024 8:38 [...] OR DERABLES Final Result Performing Organization Address [facility] Co de Phone Number [facility] [address] [place] [address] * (ABNORMAL) Albumin Creatinine Ratio, Urine (07/25/2024 8:38 AM CDT) Albumin Ur 3,573.3 mg/L Comment: Interpretive Data No reference range established. Current interpretive data was last revised 2018. Creatinine Ur 91.7 mg/dL [facility] Comment: Interpretive Data No reference range established. Current interpretive data was last revised 2018. Albumin Creatinine Ratio, Ur 3,897(H) 1 - 29 mg/g [facility] Urine 07/25/2024 8:38 AM CDT 07/25/2024 10:04 PM CDT Lily Wolf NP LAB URINE ORDERABLES Final Re sult [facility] [address] Department [place] [address] * (ABNORMAL) Lipid panel (07/25/2024 8:38 AM [...] revised on 2017. Triglycerides 204(H) <=149 mg/dL [facility] Comment: Interpretive Data Ages < or = [...] Georgi Villalobos et al. JOSÉ MIGUEL Cardiol. 2020 July [...] last revised on 2017. Chol/HDL ratio 5 JASON TAPIA Blood 07/25/2024 8:38 AM CDT 07/25/2024 10:04 PM CDT Lily Wolf NP LAB BLOOD ORDERABLES Final Re sult JASON TAPIA [address] Department [place] [address] * DIABETES EYE EXAM (05/10/2024 9:16 AM SINTER FEEDER) Historical Provider HEALTH MAINTENANCE Final Result * COLONOSCOPY (01/10/2022) Historical Provider HEALTH MAINTENANCE Final Result from Last 3 Months or Most Recently Relevant to Health Maintenance Insurance CIGNA CIGNA [facility] CIGNA Care Teams Juvenile Probation Officer Relationship Specialty Start Date End Date Lily Wolf NP [address] [place] [address] PCP - General Family Medicine 08/25/24 Sudarshan Funez MD [address] [facility] [address] [place] [address] Consulting Physician Cardiovascular Disease 08/25/23 [place] [address] [place] [address] Surgeon Orthopedic Surgery 08/25/23 Hebert Daily MD [address] [place] [address] Consulting Physician Urology 08/25/23 Donavan Knott MD [address] [facility] [address] [place], [place] [id number] Consulting Physician Internal Medicine 01/26/24 Mikhail Caceres MD [address] [facility] [address] [place] [address] Referring Physician Gastroenterology 01/26/24 Anita Covarrubias OD [address] [place] [address] Optometry 01/26/24 Cyril Gallardo MD [address] [place] [address] Referring Physician Nephrology 07/27/24
== END 2024-12-28 15:38 | disposition home or self-care (01) ==
DX: M25.522 Pain in left elbow (principal)
CPT/HCPCS: 73080

== ENCOUNTER 2025-01-24 07:23 | Outpatient (CLI) | payer OTHER, SELFPAY ==
--- OUTSIDE RECORDS SUMMARY | 2022-11-04 18:00 | XMS_ITS | Continuity of Care Document ---
Author Organization [facility] Address [address] [place] [address] Phone Care Team Providers Care Preschool Teacher'S Assistant Name Role Phone Sergei Lockhart MD, Brendon Unavailable Unavailabl e Procedures Procedure Date POLYSOM 6/>YRS CPAP 4/> PARM Advance Directives Directive Yes / No Effective Date File Name No Information Encounters Encounter Description Practice Location Reason(s) For Visit Diagnoses Date Provider [facility], [address] , [place], [address], [place] tel:[phone] [facility] No Information 2022 Sergei Olivas. [address] [facility], [place], [place], [id number], [place]. tel:[phone] Family History Family Member Type Diagnosis Age At Onset No Information Payers Payer name Insurance type Covered green party ID Authoriza tirosalino(s) Self Pay [id number] Social History Type Description Quantity Date Captured Comments Sex Male Smoking Status No Information Chief Complaint And Reason For Visit No Information History Of Present Illness Encounter Date Complaint History Of Prese nt Illness No Information Instructions Date Instruction Additional Infor mation No Information Assessments Type Assessment Date No Information
--- OUTSIDE RECORDS SUMMARY | 2023-01-12 01:45 | XMS_ITS | Continuity of Care Document ---
Author Organization [facility] Address [address] [facility] [address] [place] [address] Phone Care Team Providers Care Case Briefer Name Role Phone Jluis Trinidad MD Unavailable Unavailable Allergies, Adverse Reactions, Alerts Substance Reaction Status Criticality No Known Allergies Active No Inform ation Medications Medication Instructions Dosage Effective Dates (start - stop) Status Comments tamsulosin 0.4 mg capsule - Active amlodipine 10 mg tablet - Active losartan 100 mg tablet - Active metformin 500 mg tablet - Active metoprolol tartrate 25 mg tablet TAKE 1 TABLET BY MOUTH TWICE DAILY - Active gabapentin 300 mg capsule - Active Ozempic 1 mg/dose (4 mg/3 mL) subcutaneous pen injector - Active rosuvastatin 40 mg tablet TAKE 1 TABLET BY MOUTH ONCE DAILY - Active aspirin 81 mg chewable tablet - Active Vitamin C (unknown strength) Not Available - Active vitamin d3 (unknown strength) Not Available - Active Procedures Procedure Date OFFICE/OUTPATIENT VISIT, EST Advance Directives Directive Yes / No Effective Date File Name No Information Encounters Encounter Description Practice Location Reason(s) For Visit Diagnoses Date Provider Providers Copied on Encounter OFFICE/OUTPAT IENT VISIT, EST [facility], [address] [facility] [address], [place], [place], [id number], [place] tel:[phone] [facility] burning and irritation (chief complaint)DM II (chief complaint) Dry eye syndrome of bilateral lacrimal glandsMGD (meibomian gland dysfunction )Age-relate d nuclear cataract, bilateral Dec-3 3 Vivi Bazzi. [address] [facility], [place], [place], [address] , [place]. tel:[phone] Referring Provider: No PCP A.. Family History Family Member Type Diagnosis Age At Onset No Information Payers Payer name Insurance type Covered libertarian ID Authortommiea tirosalino(s) EMILIANO IBEW PLAN CI [id number] Social History Type Description Quantity Date Captured Comments Alcohol Use Details Unknown Caffeine Use Details Unknown Tobacco Use Status Current non-smoker Smoking Status Never smoker Non-Smoking Tobacco Use Details : No Details Available : No Details Available Sex Male Chief Complaint And Reason For Visit From encounter dated '01/12/2023 07:45'. burning and irritation (chief complaint). Description: The 62 year old male presents for evaluationof burning and irritation OU. Pt complains that for about a year he has been having a lot of burning and discharge OU, better some days than others, stable. He complains that he sometimes gets a mucusy film on his eyes that affects his vision as well. He notes that he uses a C-Pap machine and oftenwakes up with a lot of crust OU, sometimes has trouble opening his eyes from this. He has been using Pataday daily OU as advised by his Cop, but that hasn't seemed to help much, oftenfinds himself rubbing his eyes a lot.He notes that he has also been dealing with a Yeast infection on and off for much of this past year as well. DM II (chief complaint). Description: The patient is present for evaluation of DM II per Manuela Flores. Last A1C was around 8%, doesn't check BS consistently. He notes that vision is comfortable most of the time, notes that he sees some floaters sometimes, nothing too distracting. Reason For Referral Reason For Referral No Information History Of Present Illness Encounter Date Complaint History Of Prese nt Illness burning and irritation The 62 ye ar old male presents for evaluation of burning and irritation OU. Pt complains that for about a year he has been having a lot of burning and discharge OU, better some days than others, stable. He complains that he sometimes gets a mucusy film on his eyes that affects his vision as well. He notes that he uses a C-Pap machine and often wakes up with a lot of crust OU, sometimes has trouble opening his eyes from this. He has been using Pataday daily OU as advised by his Cop, but that hasn't seemed to help much, often finds himself rubbing his eyes a lot.He notes that he has also been dealing with a Yeast infection on and off for much of this past year as well. DM II The patient is p resent for evaluation of DM II per Manuela Flores. Last A1C was around 8%, doesn't check BS consistently. He notes that vision is comfortable most of the time, notes that he sees some floaters sometimes, nothing too distracting. Functional Status Date Functional Assessmen t No Information Instructions Date Instruction Additional Infor kike Impression/Plan Related to Dry e ye syndrome of bilateral lacrimal glands Impression/Plan Related to MGD ( meibomian gland dysfunction) Impression/Plan Related to Age-r elated nuclear cataract, bilateral Assessments Type Assessment Date assessment Dry eye syndrome of bilateral la crimal glands assessment MGD (meibomian gland dysfunction ) impression Dry eye syndrome of bilateral la crimal glands: H04.123 impression MGD (meibomian gland dysfunction ): H02.889 assessment Age-related nuclear cataract, bi lateral impression Age-related nuclear cataract, bi lateral: H25.13 Patient Care Teams Name Effective Dates (start - stop) Status Members No Information
--- NOTE | ~2025-01-24 | US_ITS ---
Examination: Ultrasound of the retroperitoneum including kidneys and bladder. Clinical History: N18.32 - Chronic kidney disease, stage 3b . Comparison: Renal sonogram 02/01/2021. Findings: Right kidney: 12 cm. Normal echogenicity. No collecting system dilatation. No shadowing calculi. Left kidney: 11 cm. Normal echogenicity. No collecting system dilatation. No shadowing calculi. Urinary bladder: No wall thickening or focal abnormality. IMPRESSION: 1. No acute abnormality. Reviewed, dictated and finalized at location R. LE BOARD REPAIRER IMPRESSION: 1. No acute abnormality.
--- OUTSIDE RECORDS SUMMARY | 2025-01-24 07:28 | XMS_ITS | Clinical Summary ---
Author Organization [facility] Address [address] [place] [address] Phone Care Team Providers Care Machine Installer Name Role Phone Leon Shultz DO Primary Care Provider [phone] Allergies Active Allergy Reactions Criticality Noted Date Comments Influenza Vaccines Unknown 02/15/2019 Pneumococcal Vaccine Unknown 02/15/2019 Tetanus Toxoid-Containing Vaccines Unknown 1 04/18/2018 Medications Jardiance 25 MG tablet Take 1 [...] day 1 Active Lancets (OneTouch Delica Plus [id number]) misc USE TO TEST TWICE A DAY [...] HADS. Mild evidence of daytime drowsiness on [place] scale. No evidence of REM Behavior Disorder [...] the tremor has worsened. This encounter's total qnrd-kk-hsut time was greater than 60 minutes. I [...] disease 07/05/2018 Type 2 diabetes mellitus 07/05/2018 Guillain-Lebanon syndrome 11/27/2008 Hyperkalemia 11/24/2008 Hypertension 11/24/2008 Morbid [...] Comments Blood Pressure 132/76 01/22/2022 9:22 AM SPECIFICATIONS CHECKER Pulse - - Temperature 35.6 C (96.1 F) 01/22/2022 9:22 AM SPECIFICATIONS CHECKER Respiratory Rate 18 01/22/2022 9:22 AM SPECIFICATIONS CHECKER Oxygen Saturation - - Inhaled Oxygen Concentration - - Weight 129 kg (285 lb) 01/22/2022 9:22 AM SPECIFICATIONS CHECKER Height 170.2 cm (5' 7) 01/22/2022 9:22 AM SPECIFICATIONS CHECKER Body Mass Index 44.64 01/22/2022 9:22 AM SPECIFICATIONS CHECKER Plan of Treatment Health Maintenance Due Date Last Done Comments Influenza Vaccine (#1) 2024 Insurance [employer] Care Teams Machine Installer Relationship Specialty Start Date End Date Yablonsky, Leon, DO [address] [place] [address] PCP - General Internal Medicine 09/03/20
--- OUTSIDE RECORDS SUMMARY | 2025-01-24 07:28 | XMS_ITS | Clinical Summary ---
Author Organization [facility] Address [address] [place] [address] Care Team Providers Care Bibliographic Services Specialist Name Role Phone Adrian White MD Primary Care Provider [phone] Source Comments [facility],non-owned Affiliates and Associated Physician Practices is amultiple site organization consisting of ambulatory clinics and hospital sitesin [place], [place], [place] and [place]. This disclosure is being madepursuant to the Care Everywhere program and may not contain all information available regarding this patient. 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 Gender Identity Not on file Sexual Orientation [...] 6:25 AM CDT) Cholesterol 148 <200 mg/dl [facility] Triglycerides 147 <200 mg/dl [facility] HDL Cholesterol 32(L) >35 mg/dl [facility] LDL Direct 91.44 <130 mg/dl [facility] BLOOD SPECIMEN / Unknown 11/24/2008 6:25 AM CDT 11/24/2008 7:00 AM CDT us Pallavi Silva MD LAB - CHEMISTRY ORDERABLES Final Result [facility] [address] [id number] from Last 3 Months or Most Recently Relevant to Health Maintenance Advance Directives * Full Code (Latest Code Status on File) Date Activated Date Inactivated Comments 11/23/2008 10:14 PM 12/04/2008 2:44 AM Care Teams Bibliographic Services Specialist Relationship Specialty Start Date End Date Adrian White MD [address] [place] [address] PCP - General 11/23/08
--- OUTSIDE RECORDS SUMMARY | 2025-01-24 07:28 | XMS_ITS | Clinical Summary ---
Author Organization [facility] [address] Address [address] [place] [address] Care Team Providers Care Engine Turner Name Role Phone Sudarshan Funez MD Unavailable [phone] William Delarosa MD Unavailable [phone] Hebert Daily MD Unavailable [phone] Donavan Knott MD Unavailable Mikhail Caceres MD Unavailable [phone] Anita Covarrubias OD Unavailable [phone] Cyril Gallardo MD Unavailable [phone] Lily Wolf NP Primary Care Provider [phone] Allergies Active Allergy Reactions Criticality Noted Date [...] tablet/chew tab (500 mg total) by mouth supervisor hand silvering before breakfast Active cholecalciferol, vitamin D3, 5,000 unit/mL drops Take 1 tablet/capsule by mouth supervisor hand silvering before breakfast Active albuterol HFA (PROVENTIL HFA,VENTOLIN [...] with long-term current use of insulin (HCC) Use one sensor every 10 days ( via DME ) 12/13/19 25 Active Active Problems Problem Noted Date Diagnosed [...] 01/26/2024 Assessment & Plan (01/26/2024 9:59 AM BOWL SANDER): -constipation guidelines -add senna senakot Hyperlipidemia associated with type 2 diabetes himanshu dueks 01/26/2024 Assessment & Plan (07/25/2024 8:36 AM CDT): Lipid abnormalities are stable, reviewed previous lipid levels in [facility]. Continue statin therapy. Crestor (rosuvastatin) Order for lipid panel was given today to be obtained. Pt voiced understanding of lab drawn and continuation of current medication regimen. Assessment & Plan (01/26/2024 10:02 AM BOWL SANDER): Lipid abnormalities are stable. Pharmacotherapy as ordered. Continue atorvastatin twice weekly Lab Results Component Value Date LDLCALC 57 01/18/2024 Lipids will be reassessed in 6 months. Cutaneous candidiasis 01/26/2024 Assessment & Plan (01/26/2024 10:09 AM BOWL SANDER): -ketoconazole -betamethasone sparingly -continue scent-free products Chronic [...] counseling. Assessment & Plan (01/26/2024 10:28 AM BOWL SANDER): BMI Follow-up includes: exercise counseling. Assessment & Plan (11/30/2023 8:32 AM CDT): BMI Follow-up includes: exercise counseling. Stage 3b chronic kidney disease 08/25/2023 Assessment & Plan (07/25/2024 8:36 AM CDT): Managed by Nephrology. Rechecking labs today. He has been taken off of losartan Last GFR was 42 Assessment & Plan (01/26/2024 10:06 AM BOWL SANDER): Lab Results Component Value Date GFRNAA 42 (L) 01/18/2024 Lab Results Component Value Date CREATININE 1.80 (H) 01/18/2024 Lab Results Component Value Date BUNSER 24 01/18/2024 Continue to follow a Renal diet that is low in sodium, potassium, and phosphorus. Avoid/limit foods such as fast food items, fried/breaded foods, canned goods, deli meats, gravies/sauces, bananas, tomatoes, oranges, milk, dark myriam and chocolate. [place] juice, citrus juices, and tomato juice are also high in potassium. Do not use salt substitutes, as they may contain potassium. Additional resources available online from the National Kidney Foundation at www.kidney.org/nutrition Labs are stable. Continue tight blood pressure control. Encouraged adequate fluid intake. Avoid nsaids. Will continue to monitor. 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 Last GFR that we have available was 57 in 2021. Will try to get updated labs. Tremor, unspecified 02/11/2021 Assessment & Plan (03/02/2021 1:12 PM BOWL SANDER): NEUROPSYCHOLOGICAL EVALUATION: INTERPRETATION (for Assessment and Plan, see further below) Normal cognitive performance on MMSE; Normal cognitive performance on MoCA. No evidence of depression on GDS; No evidence of depression on HADS. No evidence of anxiety on HADS. Mild evidence of daytime drowsiness on [place] scale. No evidence of REM Behavior Disorder [...] the tremor has worsened. This encounter's total dfor-be-umkp time was greater than 60 minutes. I [...] in 2008. Sees Neurology yearly. History of Guillain-Gleason syndrome 11/27/2008 Overview (08/25/2023): Does not get influenza vaccine Diabetes mellitus type II, controlled 11/24/2008 Assessment & Plan (07/25/2024 8:35 AM CDT): Has established with endocrinology here in [place]. Currently on insulin and mounjaro. Lab Results Component Value Date HGBA1C 6.2 05/19/2024 Lab Results Component Value Date SCRA1C 9.1 08/19/2023 Assessment & Plan (01/26/2024 10:05 AM BOWL SANDER): Stable. A1c 6.8%. managed by [facility]. Also seeing family educator. Assessment & Plan (08/25/2023 1:30 PM CDT): Uncontrolled. Hemoglobin A1c done at outside office. Results will be scanned into [employer] and A1c was 9.1%. He is currently on max dose of Ozempic at 2 mg weekly and max dose metformin a 1000 mg b.i.d.. He has an appointment with an final assembly and packing supervisor in a couple weeks. He is going [...] managing Assessment & Plan (01/26/2024 10:06 AM BOWL SANDER): Borderline today. I do not want to [...] Encounters Date Type Department Care Team Description 01/10/2025 Telephone [facility] [id number] [place] [address] [address], [place] [address] Kemi Daly MD [facility] 12/12/2024 8:30 AM CDT Office Visit [facility] Diabetes [facility] Endocrinology [address] [place] [phone] Kemi Daly MD Type 2 diabetes [...] COPD (chronic obstructive pu lmonary disease) Hypertension 2000 Diabetes mellitus 2000 Arthritis Gout Obesity Pneumonia 2017 Sleep apnea 2005 Guillain De Santiago syndrome 2008 Did not require intubation. 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 Not on file Not on [...] of 2) 05/19/2011 Foot Exam 08/24/2024 08/25/2023 Covid-19 Vaccine (2024-2 6 season) 2024 01/27/2024, 12/31/2022, 07/19/2021, Additional history exists Influenza Vaccine (#1) 2024 Dilated Eye Exam 05/10/2025 05/10/2024, 05/07/2023 Hemoglobin A1C 06/11/2025 12/12/2024, 030 08/2024, 01/18/2024, Additional history exists Albumin Creatinine [...] Discontinued 01/10/2022 Colon Cancer Screening-Sigmoidoscopy Discontinued 01/10/2022 Hepatitis B Screening Completed 07/25/2024 Hepatitis C [...] stage 3 chronic kidney disease, unspecified whether terminal make up operator insulin use (HCC) PSA SCREEN Routine 07/25/2024 8:38 AM CDT Screening PSA (prostate specific antigen) DIABETES EYE EXAM Routine 05/10/2024 9:16 AM BOWL SANDER COLONOSCOPY Routine 01/10/2022 from Last 3 Months or Most Recently Relevant to Health Maintenance Results * (ABNORMAL) POCT hemoglobin A1c (12/12/2024 8:25 AM CDT) Pathologist [facility] Hemoglobin A1C, POC 6.3(A) 4.0 - 5.6 % Blood 12/12/2024 8:25 AM CDT Kemi Mueller MD POINT OF CARE TEST ORDERABLES Final Result * POCT glucose (12/12/2024 8:25 AM CDT) [facility] Glucose Blood, POC 176 Normal Fasting 70 - 100, Random <200 mg/dL Blood 12/12/2024 8:25 AM CDT Kemi Mueller MD POINT OF CARE TEST ORDERABLES Final Result * (ABNORMAL) eGFR (07/25/2024 8:38 AM CDT) Pathologist [facility] eGFR 32(L) >=60 mL/min/1. 73 m2 Comment: [...] ORDERABLES Final Re sult Performing Organization Address [facility] de Phone Number JASON [address] [place] [address] * PSA screen (07/25/2024 8:38 [...] ORDERABLES Final Re sult Performing Organization Address [facility] [place] Number [place] [address] [place] [address] * Hepatitis C antibody Blood [...] OR DERABLES Final Result Performing Organization Address [facility] Co de Phone Number JASON TAPIA [address] [place] [address] * (ABNORMAL) Albumin Creatinine Ratio, Urine (07/25/2024 8:38 AM CDT) Pathologist [facility] Albumin Ur 3,573.3 mg/L Comment: Interpretive Data No reference range established. Current interpretive data was last revised 2018. Creatinine Ur 91.7 mg/dL [facility] Comment: Interpretive Data No reference range established. Current interpretive data was last revised 2018. Albumin Creatinine Ratio, Ur 3,897(H) 1 - 29 mg/g [facility] Urine 07/25/2024 8:38 AM CDT 07/25/2024 10:04 PM CDT Lily Wolf NP LAB URINE ORDERABLES Final Re sult Performing Organization Address [facility] Co de Phone Number JASON TAPIA [address] [facility] [employer] [place], [place] [id number] * (ABNORMAL) Lipid panel (07/25/2024 8:38 AM CDT) [facility] Cholesterol 148 30 - 199 mg/dL Comment: [...] LAB BLOOD ORDERABLES Final Re sult JASON [address] [facility] [place] [address] * DIABETES EYE EXAM (05/10/2024 9:16 AM BOWL SANDER) Historical Provider HEALTH MAINTENANCE Final Result * COLONOSCOPY (01/10/2022) Historical Provider HEALTH MAINTENANCE Final Result from Last 3 Months or Most Recently Relevant to Health Maintenance Insurance [employer] CIGNA IBEW Care Teams Engine Turner Relationship Specialty Start Date End Date Lily Wolf NP [address] [place] [address] PCP - General Family Medicine 08/25/24 Sudarshan Funez MD [address] [place] [address] Consulting Physician Cardiovascular Disease 08/25/23 [place] [address] [place] [address] Surgeon Orthopedic Surgery 08/25/23 Hebert Daily MD [address] [place] [address] Consulting Physician Urology 08/25/23 Donavan Knott MD [address] [facility] [address] [place] [address] Consulting Physician Internal Medicine 01/26/24 Mikhail Caceres MD [address] [facility] [address] [facility] [address] [place] [address] Referring Physician Gastroenterology 01/26/24 Anita Covarrubias OD [address] [place] [address] Optometry 01/26/24 Cyril Gallardo MD [address] [place] [address] Referring Physician Nephrology 07/27/24
== END 2025-01-24 07:24 | disposition home or self-care (01) ==
LOC: CHSIMG 07:26
PROVIDERS: Visit Provider Internal Medicine Nephrology
DX: N18.32 Chronic kidney disease, stage 3b (principal)
CPT/HCPCS: 76770